=== PATIENT | male | born 1950 | race Caucasian/White ===

== ENCOUNTER → 2019-06-11 | Outpatient (CLI) | payer MEDICARE, OTHER ==
[2019-06-11 12:23] LABS: Basophils % (A) 0 %; Eosinophils # (A) 0.1 k/uL (0-0.7); Eosinophils % (A) 2 %; HCT 40.7 % (39.0-53.0); HGB 13.4 gm/dL (13.0-17.5); Lymphocytes % (A) 13 %; MCH 30.7 pg (25.0-35.0); Mean Platelet Volume 6.6; Monocytes # (A) 0.4 k/uL (0-1.0); Monocytes % (A) 5 %; Neutrophils # (A) 6.1 k/uL (1.3-7.7); Neutrophils % (A) 78 %; Platelet Count 225 k/uL (150-450); RBC 4.38 m/uL (4.30-5.90); RDW 13.3 % (11.5-15.5); WBC 7.9 k/uL (3.8-10.6)
[2019-06-11 12:33] LABS: INR 1.1 (<1.2); Partial Thromboplastin Time 28.7 sec (22.0-30.0); Prothrombin Time 11.2 sec (9.0-12.0)
[2019-06-11 12:42] LABS: African American GFR (CKD) >90 (>60 ml/min/1.73 sqM); Anion Gap 8 mmol/L; Blood Urea Nitrogen 13 mg/dL (9-20); Calcium 8.9 mg/dL (8.4-10.2); Carbon Dioxide 26 mmol/L (22-30); Chloride 107 mmol/L (98-107); Glucose 97 mg/dL (74-99); Potassium 3.4 mmol/L (3.5-5.1); Sodium 141 mmol/L (137-145)
[2019-06-11 13:34] LABS: Appearance,Urine Clear (Clear); Bilirubin,Urine Negative (Negative); Blood,Urine Negative (Negative); Color,Urine Yellow; Glucose,Urine (UA) Negative (Negative); Ketones,Urine Negative (Negative); Leukocyte Esterase,Urine Negative (Negative); Mucus,Urine Rare /hpf; Nitrite,Urine Negative (Negative); Protein,Urine 1+ (Negative); Specific Gravity,Urine 1.019 (1.001-1.035); Squamous Epithelial Cell,Urine <1 /hpf (0-4); Urobilinogen,Urine <2.0 mg/dL (<2.0); WBC,Urine 1 /hpf (0-5)
--- NOTE | 2019-06-11 14:36 | XR ---
EXAMINATION TYPE: XR chest 2V DATE OF EXAM: 06/11/2019 COMPARISON: Prior chest x-ray 11/06/2018 HISTORY: Spinal stenosis, preop back surgery TECHNIQUE: Frontal and lateral views of the chest are obtained on 3 images. FINDINGS: There is no focal air space opacity, pleural effusion, or pneumothorax seen. The cardiac silhouette size is within normal limits. 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 Apical pleural thickening, scarring present especially in the left upper lobe. The osseous structu res are intact. There is thoracic spondylosis. IMPRESSION: No acute cardiopulmonary process. Stable abnormal findings.
== END ==
LOC: LABPAT 11:22
PROVIDERS: ATTEND Orthopaedic Surgery Orthopaedic Surgery of the Spine
DX: Z01.818 Encounter for other preprocedural examination (principal); Z01.812 Encounter for preprocedural laboratory examination; M48.00 Spinal stenosis, site unspecified
CPT/HCPCS: 71046; 80048; 81001; 85025; 85610; 85730; 87070; 93005

== ENCOUNTER → 2019-07-19 | Outpatient (CLI) | payer MEDICARE ==
[2019-07-19 14:04] LABS: Basophils # (A) 0.1 k/uL (0-0.2); Basophils % (A) 1 %; Eosinophils # (A) 0.2 k/uL (0-0.7); Eosinophils % (A) 3 %; HCT 45.3 % (39.0-53.0); HGB 14.8 gm/dL (13.0-17.5); Lymphocytes # (A) 1.3 k/uL (1.0-4.8); Lymphocytes % (A) 20 %; MCH 30.5 pg (25.0-35.0); MCHC 32.7 g/dL (31.0-37.0); MCV 93.4 fL (80.0-100.0); Mean Platelet Volume 7.2; Monocytes # (A) 0.4 k/uL (0-1.0); Monocytes % (A) 6 %; Neutrophils # (A) 4.2 k/uL (1.3-7.7); Neutrophils % (A) 66 %; Platelet Count 224 k/uL (150-450); RBC 4.85 m/uL (4.30-5.90); WBC 6.4 k/uL (3.8-10.6)
[2019-07-19 14:08] LABS: Appearance,Urine Clear (Clear); Bilirubin,Urine Negative (Negative); Blood,Urine Negative (Negative); Color,Urine Yellow; Glucose,Urine (UA) Negative (Negative); Ketones,Urine Negative (Negative); Leukocyte Esterase,Urine Negative (Negative); Nitrite,Urine Negative (Negative); PH, Urine 5.5 (5.0-8.0); Protein,Urine Trace (Negative); Specific Gravity,Urine 1.018 (1.001-1.035); Urobilinogen,Urine <2.0 mg/dL (<2.0)
[2019-07-19 14:11] LABS: Partial Thromboplastin Time 28.5 sec (22.0-30.0); Prothrombin Time 10.8 sec (9.0-12.0)
[2019-07-19 14:30] LABS: African American GFR (CKD) >90 (>60 ml/min/1.73 sqM); Anion Gap 7 mmol/L; Blood Urea Nitrogen 15 mg/dL (9-20); Carbon Dioxide 30 mmol/L (22-30); Chloride 104 mmol/L (98-107); Glucose 93 mg/dL (74-99); Non-African American GFR(CKD) 86 (>60 ml/min/1.73 sqM); Potassium 4.3 mmol/L (3.5-5.1); Sodium 141 mmol/L (137-145)
== END ==
LOC: LABPAT 12:24
PROVIDERS: ATTEND Orthopaedic Surgery Orthopaedic Surgery of the Spine
DX: Z01.812 Encounter for preprocedural laboratory examination (principal); M48.00 Spinal stenosis, site unspecified
CPT/HCPCS: 80048; 81003; 85025; 85610; 85730

== ENCOUNTER → 2019-07-19 | Outpatient (CLI) | payer MEDICARE ==
--- NOTE | 2019-07-19 16:03 | XR ---
EXAMINATION TYPE: XR chest 2V DATE OF EXAM: 07/19/2019 COMPARISON: Prior chest x-ray 06/11/2019 HISTORY: Presurgical testing TECHNIQUE: Frontal and lateral views of the chest are obtained. FINDINGS: There is no focal air space opacity, pleural effusion, or pneumothorax seen. The cardiac silhouette size is within normal limits. The osseous structures are intact, thoracic spondylosis is noted. Biapical pleural thickening is stable. IMPRESSION: No acute cardiopulmonary process.
== END | disposition home or self-care (01) ==
LOC: RADXRMAIN 13:03
PROVIDERS: ATTEND Internal Medicine
DX: I44.0 Atrioventricular block, first degree (principal)
CPT/HCPCS: 71046

== ENCOUNTER 2019-07-26 13:48 | Day surgery (SDC) | payer MEDICARE, OTHER ==
[2019-07-20 09:49] VITALS: BMI 34.9
[~2019-07-26 13:48] MED LIST: BACITRACIN 50,000 UNIT, POLYMYXIN B 500,000 UNIT in SODIUM CHLORIDE 0.9% IRRIGATIO 1,00... IRRIGATION ONE; LIDOCAINE 1% 20 ML VIAL (10MG/ML) FOR IV START INTRADERMA PRN; ONDANSETRON 4 MG/2 ML VIAL IVP ONE; ceFAZolin 3 GM in SODIUM CHLORIDE 0.9% 100 ML IVPB ONE
[2019-07-26] MEDS: LACTATED RINGERS 1,000 ML IV SCH ×2 (14:15→18:41)
[2019-07-26] MEDS ORDERED: PHENYLEPHRINE-0.9% NACL SYG 1 MG/10 ML SYRINGE ONE (16:03)
[2019-07-26] MEDS ORDERED: PROPOFOL 10 MG/ML 20 ML VIAL IV ONE (16:03)
[2019-07-26] MEDS ORDERED: MIDAZOLAM 2 MG/2 ML VIAL ONE (16:03)
[2019-07-26] MEDS ORDERED: LIDOCAINE 1% INJ 10MG/ML (20 ML MDV) ONE (16:03)
[2019-07-26] MEDS ORDERED: fentaNYL (PF) 50 MCG/ML 2 ML AMP ONE (16:03)
[2019-07-26] MEDS ORDERED: HYDROmorphone (PF) 1 MG/ML ONE (16:03)
[2019-07-26] MEDS ORDERED: SUCCINYLCHOLINE CHLORIDE 100 MG/5 ML SYR IV ONE (16:03)
[2019-07-26] MEDS ORDERED: LIDOCAINE 0.5%-EPI 1:200,000 50 ML VIAL SQ ONE ×2 (16:44→17:24)
[2019-07-26] MEDS ORDERED: methylPREDNISolone ACETATE 80 MG/ML 1 ML VIAL INJ ONE ×2 (16:44)
[2019-07-26] MEDS ORDERED: THROMBIN (BOVINE) 5,000 UNIT VIAL TOPICAL ONE (16:45)
[2019-07-26] MEDS ORDERED: GELATIN SPONGE,ABSORB (SMALL) 1 EACH SPONGE TOPICAL ONE (16:45)
[2019-07-26] MEDS ORDERED: LACTATED RINGERS 1,000 ML IV ONE (16:57)
[2019-07-26] MEDS ORDERED: ONDANSETRON 4 MG/2 ML VIAL IVP PRN (17:42)
[2019-07-26] MEDS ORDERED: MAGNESIUM HYDROXIDE 2,400 MG/10 ML CUP PO PRN (17:42)
[2019-07-26] MEDS ORDERED: HYDROmorphone 1 MG/ML 1 ML SYRINGE IVP PRN (17:42)
[2019-07-26] MEDS ORDERED: IBUPROFEN 600 MG TAB PO PRN (17:42)
[2019-07-26] MEDS ORDERED: BENZOCAINE/MENTHOL LOZENG 1 EACH LOZENGE MUCOUS MEM PRN (17:42)
[2019-07-26] MEDS ORDERED: HYDROcodone/APAP 5-325MG 1 EACH TAB PO PRN (17:42)
[2019-07-26] MEDS ORDERED: KETOROLAC 30 MG/ML 1 ML VIAL IVP PRN (17:42)
[2019-07-26] MEDS ORDERED: HYDROmorphone 0.5 MG/0.5 ML SYRINGE IVP PRN (17:42)
[2019-07-26] MEDS ORDERED: ALBUTEROL NEBULIZED 2.5 MG/3 ML INHALATION PRN (17:45)
[2019-07-26] MEDS ORDERED: GABAPENTIN 300 MG CAP PO PRN (17:45)
[2019-07-26] MEDS ORDERED: traMADol 50 MG TAB PO PRN (17:45)
--- NOTE | 2019-07-26 17:50 | P.OP ---
Date of Procedure: 07/26/19 Preoperative Diagnosis: Severe spinal stenosis L4 5, neurogenic claudication, bilateral lower extremity radiculopathy, degenerative disc disease, facet arthrosis Postoperative Diagnosis: Severe spinal stenosis L4 5, neurogenic claudication, bilateral lower extremity radiculopathy, degenerative disc disease, facet arthrosis Anesthesia: GETA Pathology: none sent Condition: stable Disposition: PACU Description of Procedure: BRIEF OPERATIVE NOTE Preoperative Diagnosis: Severe spinal stenosis L4 5, degenerative disc disease L4 5, neurogenic claudication, lower extremity radiculopathy, facet arthrosis Postoperative Diagnosis: Same Procedure: Laminectomy and decompression with wide bilateral foraminotomies L4 5 Placement of the interlaminar stabilization device, Coflex device at L4 5 Surgeon: Dr. Jefferson Engineering Specialist: chemistry laboratory technician who served as a medical office assistant instructor is present throughout the entire the case persistence during positioning, dissection, exposure, visualization, and all crucial elements of the case as well as closure. Anesthesia: General anesthesia per Dr. Dr. Bran Estimated blood loss: approximately 50 mL Complications: None apparent Components implanted: Coflex interlaminar stabilization device L4-5, measuring 10 mm Disposition: To recovery room in good stable condition. OPERATIVE INDICATIONS The patient has been having issues in their lower back and lower extremities. he is having severe claudication symptoms due to his severe spinal stenosis at her lumbar spine particularly severely at L4 5. He is not having any prolonged benefit despite aggressive conservative treatment. He had been through medications physical therapy as well as interventional pain management and was having worsening symptoms despite aggressive conservative care We discussed various treatment options. The patient has been through conservative treatment. she is not having any prolonged benefit despite aggressive conservative treatment We discussed various treatment options including surgery, ranging from laminectomy alone to the possibility of decompression with stabilization as well as the decompression and fusion. We felt that the patient could benefit with decompression and interlaminar stabilization,and the patient wishes to proceed with surgery. The patient also has a history of atrial fibrillation. We discussed the risk, patient's alternatives and benefits of surgery including but not limited to, risk of bleeding risk of infection, risk of need for further surgery, risk of decreased, loss of motion, loss of function, nerve damage, paralysis, heart attack, blindness and . OPERATIVE SUMMARY After discussing all the risks, patient alternatives and benefits at length, the patient elected to proceed with surgical intervention, signed informed consent, and presented for their procedure. The patient was seen and examined in the preoperative holding area and the surgical site was marked. The patient was given antibiotics and brought to the operating room. The patient was sedated and intubated by anesthesia in standard fashion. The patient was positioned on to the operating room table in a prone position on the appropriate frame which was well-padded and well molded. We were careful to pad any bony prominences and pressure points. We were careful to maintain the patient's cervical spine and good neutral alignment and position throughout. The patient was prepped and draped in a normal standard fashion. An appropriate timeout and keystone protocol performed. We were able to proceed with the surgery. Fluoroscopy was utilized to establish the appropriate level. The local wound area was infiltrated with local anesthetic. An incision was made at the midline longitudinally over the appropriate levels at L4 5. Dissection was taken down subcutaneously to the level of the fascia which was split midline. Dissection was taken over the lamina. Intraoperative fluoroscopy was taken which showed a marker at the appropriate level at 45. With the appropriate level positively confirmed, at L4 5 we were able to proceed with laminectomy. The wound was copiously irrigated and suctioned dry as had been done periodically throughout the case. I performed a laminectomy with a combination of curettes and a high-speed bur and Kerrison rongeurs. A small medial facetectomy was performed again further access. A partial foraminotomy was also performed. Portions of the ligamentum flavum were taken down to expose the dura and traversing nerve root. There is severe thickening of the ligamentum flavum and significant facet hypertrophy with osteophytes causing severe central and bilateral foraminal stenosis. This was remedied with the decompression.There is no evidence of dural tear or leak. Good hemostasis maintained. The wound was copiously irrigated and suctioned dry. Good decompression was noted. This was done L4 5. I was unable to measure the appropriate size interlaminar stabilizing device. I was able get good alignment at the intralaminar spaces. I was able to trial with the appropriate size device and get gentle distraction at each level. I chose he is appropriate size interlaminar stabilizer. The Coflex device was positioned and malleted in place and good alignment good position with good fixation at each level. The construct was checked and found to be stable. There is good decompression without any evidence of dural tear or leak. There is no evidence of fracture. We were able to proceed with closure. The fascia was closed for a watertight closure. The subcuticular tissue was closed with absorbable suture. The wound was cleaned and dried and dressed with the appropriate dressing. The drapes were broken down. The patient was gently rolled back onto their hospital bed being careful to maintain their cervical spine and good neutral alignment and position. They were woken up by anesthesia, extubated, and brought to the rec overy room in good stable condition. The patient will be admitted to the hospital for observation and for appropriate postoperative care, medical management and monitoring. We will continue to follow them closely about the postoperative course.
--- NOTE | 2019-07-26 17:59 | FL ---
EXAMINATION TYPE: FL guidance operating room, XR lumbar spine 1V DATE OF EXAM: 07/26/2019 CLINICAL HISTORY: Back pain. Lumbar spinal surgery. Localization. TECHNIQUE: Fluoroscopy. COMPARISON: None. FINDINGS: Fluoroscopic guidance was provided during procedure performed by Dr. Jefferson. A total of 2 seconds of fluoroscopic time was utilized during the procedure and 1 spot images was acquired demonst rating localization at the L4-L5 level (superior endplate of L5). IMPRESSION: As Above.
[2019-07-26] MEDS: HYDROmorphone 0.5 MG/0.5 ML SYRINGE IVP PRN ×2 (18:27→18:39)
[2019-07-26] MEDS: SODIUM CHLORIDE 0.9% 1,000 ML IV SCH (18:53)
[2019-07-26] MEDS: SYMBICORT 160-4.5 MCG INHALER INHALATION SCH (19:52)
[2019-07-26] MEDS ORDERED: MONTELUKAST 10 MG TAB PO SCH (21:00)
[2019-07-26] MEDS ORDERED: EDOXABAN TOSYLATE 60 MG TABLET PO SCH (21:00)
[2019-07-26] MEDS ORDERED: METOPROLOL TARTRATE 25 MG TAB PO SCH (21:00)
--- NOTE | 2019-07-26 23:34 | P.CONS ---
History of Present Illness - Reason for Consult Consult date: 07/26/19 Medical management Requesting physician: Alvina Jefferson - Chief Complaint Lumbar surgery - History of Present Illness Consultation: This is a pleasant 68-year-old patient of Dr. Farias. Chronic stable medical conditions include atrial fibrillation for which she takes anticoagulation, asthma, hypertension. Patient been having long-standing trouble with his lower spine. Been going double hip sometimes of the leg with radiculopathy. Patient did not respond to conservative treatment. And progressed to get worse. Has decided to proceed with surgery. Patient does take savaysa anticoagulant. Which has been held for the surgery. Postsurgery pain is controlled. No nausea vomiting. No chest pain. Did tolerate some diet. Patient's and 2 children up at the bedside. Review of systems: GEN.: Tired EYES: None HEENT: None NECK: None RESPIRATORY: None CARDIOVASCULAR: None GASTROINTESTINAL: None GENITOURINARY: None MUSCULOSKELETAL: Back pain and other joint pains LYMPHATICS: None HEMATOLOGICAL: None PSYCHIATRY: None NEUROLOGICAL: Preop radiculopathy Social history: Does not smoke. Alcohol occasionally. . 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 Family history: Reviewed, noncontributory to presentation Physical examination: VITAL SIGNS: 97.8, 81, 15, 127/80, 93% on 3 L GENERAL: BMI 35.4, laying in bed awake. EYES: Pupils equal. Conjunctiva normal. HEENT: External appearance of nose and ears normal, oral cavity grossly normal. NECK: JVD not raised; masses not palpable. HEART: First and second heart sounds are normal; no edema. LUNGS: Respiratory rate normal; clear to auscultation. ABDOMEN: Soft, nontender, liver spleen not palpable, no masses palpable. PSYCH: Alert and oriented x3; mood and affect normal. NEUROLOGICAL: Cranial nerves grossly intact; no facial asymmetry, power and sensation grossly intact. LYMPHATICS: No lymph nodes palpable in the axilla and neck MUSCULOSKELETAL: Dressing over the operative site INVESTIGATIONS, reviewed in the clinical context: Lab work from 07/19/2019: White count 6.4 hemoglobin 14.8 platelets 224 progression 4.3 creatinine 0.93 Assessment: -Severe spinal stenosis L4-L5, neurogenic claudication, left lower extremity radiculopathy, DJD, facet arthrosis followed by surgery -Obesity BMI 35.4 -Persistent atrial fibrillation chronically on anticoagulation -Intermittent asthma -Essential hypertension Plan: Patient's antiplatelet admission resumed when okay with Dr. jefferson. Other home medications were resumed. Pain control is in place. Also got prevent porch. Care was discussed with the patient question were answered. Is already passed urine since surgery. Thank you Past Medical History Past Medical History: Atrial Fibrillation, Asthma, Hypertension History of Any Multi-Drug Resistant Organisms: None Reported Past Surgical History: Joint Replacement Additional Past Surgical History / Comment(s): stephanie hip replacements, cardioversions, had laporotomy in past for infection and wound left open to heal Past Anesthesia/Blood Transfusion Reactions: Previous Problems w/ Anesthesia Additional Past Anesthesia/Blood Transfusion Reaction / Comm: had trouble with an ileous post op first hip replacement Past Psychological History: No Psychological Hx Reported Smoking Status: Never smoker Past Alcohol Use History: Rare Past Drug Use History: None Reported - Past Family History Mother Family Medical History: No Reported History Medications and Allergies Home Medications Medication Instructions Recorded Confirmed Type Albuterol Sulfate [Proair 2 puff PO Q4-6H PRN 06/14/19 07/26/19 History Respiclick] Budesonide-Formot 160-4.5 Mcg 2 puff INHALATION BID 06/14/19 07/26/19 History [Symbicort 160-4.5 Mcg Inhaler] Edoxaban Tosylate [Savaysa] 60 mg PO HS 06/14/19 07/26/19 History Gabapentin [Neurontin] 300 mg PO Q8H PRN 06/14/19 07/26/19 History Hydrochlorothiazide [Hydrodiuril] 12.5 mg PO DAILY 06/14/19 07/26/19 History Lisinopril [Zestril] 20 mg PO DAILY 06/14/19 07/26/19 History Metoprolol Tartrate [Lopressor] 25 mg PO HS 06/14/19 07/26/19 History Metoprolol Tartrate [Lopressor] 50 mg PO 1200 06/14/19 07/26/19 History Metoprolol Tartrate [Lopressor] 75 mg PO DAILY@0800 06/14/19 07/26/19 History Montelukast [Singulair] 10 mg PO HS 06/14/19 07/26/19 History traMADol HCL [Ultram] 50 - 100 mg PO TID PRN 06/14/19 07/26/19 History HYDROcodone/APAP 5-325MG [[place] 5] 1 each PO Q6HR PRN #28 tab 07/26/19 Rx traMADol HCL [Ultram] 50 mg PO Q4HR PRN 7 Days #42 tab 07/26/19 Rx Allergies Allergy/AdvReac Type Severity Reaction Status Date / Time No Known Allergies Allergy Verified 07/26/19 14:12 Physical Exam Vitals: Vital Signs Temp Pulse Resp BP Pulse Ox 07/26/19 20:45 74 149/89 07/26/19 20:30 68 139/90 07/26/19 20:15 71 139/85 07/26/19 20:00 79 146/85 07/26/19 19:45 78 145/80 07/26/19 19:30 73 142/89 07/26/19 19:15 75 137/85 07/26/19 19:00 97.8 F 81 15 127/80 93 L 07/26/19 18:45 73 16 139/61 96 07/26/19 18:30 74 16 141/79 96 07/26/19 18:15 72 16 146/80 93 L 07/26/19 18:00 68 16 130/63 97 07/26/19 17:50 97.3 F L 75 16 133/87 97 07/26/19 14:10 98.0 F 83 16 153/91 94 L Intake and Output 07/26/19 07/26/19 07/27/19 14:59 22:59 06:59 Intake Total 300 1201.5 Output Total 50 Balance 300 1151.5 Intake: IV 300 1201.5 Output: Estimated Blood Loss 50 Other: # Voids 1 Weight 121.563 kg 121.563 kg
[2019-07-27] MEDS: ceFAZolin 3 GM in SODIUM CHLORIDE 0.9% 100 ML IVPB SCH ×2 (01:12→08:11)
[2019-07-27] MEDS: LACTATED RINGERS 1,000 ML IV SCH ×2 (02:19→02:20)
[2019-07-27] MEDS: HYDROcodone/APAP 5-325MG 1 EACH TAB PO PRN ×3 (02:22→13:34)
[2019-07-27] MEDS: SYMBICORT 160-4.5 MCG INHALER INHALATION SCH (07:21)
[2019-07-27] MEDS ORDERED: METOPROLOL TARTRATE 25 MG TAB PO SCH (08:00)
[2019-07-27] MEDS: SODIUM CHLORIDE 0.9% 1,000 ML IV SCH (08:11)
[2019-07-27 08:36] VITALS: BP 152/90; PULSE 83; RESP 16; TEMP 98.9
[2019-07-27] MEDS ORDERED: LISINOPRIL 20 MG TAB PO SCH (09:00)
[2019-07-27] MEDS ORDERED: HYDROCHLOROTHIAZIDE 12.5 MG CAP PO SCH (09:00)
[2019-07-27] MEDS ORDERED: METOPROLOL TARTRATE 50 MG TAB PO SCH (12:00)
--- NOTE | 2019-07-30 13:32 | P.PN ---
Progress Note - Text Progress Note Date: 07/27/19 - Chief Complaint Lumbar surgery Hospital course: This is a pleasant 68-year-old patient of Dr. Farias. Chronic stable medical conditions include atrial fibrillation for which she takes anticoagulation, asthma, hypertension. Patient been having long-standing trouble with his lower spine. Been going double hip sometimes of the leg with radiculopathy. Patient did not respond to conservative treatment. And progressed to get worse. Has decided to proceed with surgery. Patient does take savaysa anticoagulant. Which has been held for the surgery. Today-pain better. Has been out of bed. Did ambulate. No fever no chills. Taking good urine. No radiculopathy. Review of systems: Was done for constitutional, cardiovascular, GI, pulmonary. relevant finding as above Current medications are reviewed in today's electronic records Physical examination: VITAL SIGNS: 98.9, 83, 16, 152/90, 90% on room air GENERAL: Sitting up, comfortable EYES: Pupils equal. Conjunctiva normal. HEENT: External appearance of nose and ears normal, oral cavity grossly normal. NECK: JVD not raised; masses not palpable. HEART: First and second heart sounds are normal; no edema. LUNGS: Respiratory rate normal; clear to auscultation. ABDOMEN: Soft, nontender, liver spleen not palpable, no masses palpable. PSYCH: Alert and oriented x3; mood and affect normal. MUSCULOSKELETAL: Dressing over the operative site INVESTIGATIONS, reviewed in the clinical context: Lab work from 07/19/2019: White count 6.4 hemoglobin 14.8 platelets 224 progression 4.3 creatinine 0.93 Assessment: -Severe spinal stenosis L4-L5, neurogenic claudication, left lower extremity radiculopathy, DJD, facet arthrosis followed by surgery -Obesity BMI 35.4 -Persistent atrial fibrillation chronically on anticoagulation -Intermittent asthma -Essential hypertension Disposition: -Anticoagulant was resumed. Doing well. In control. When discharged to follow with his PCP. Thank you
== END 2019-07-27 13:48 | disposition home or self-care (01) ==
LOC: OR 13:48 → 4SSUR 17:31 → OR 07-27 13:48
PROVIDERS: ATTEND Orthopaedic Surgery Orthopaedic Surgery of the Spine
DX: M48.062 Spinal stenosis, lumbar region with neurogenic claudication (principal); M51.17 Intervertebral disc disorders with radiculopathy, lumbosacral region; M47.26 Other spondylosis with radiculopathy, lumbar region; G89.29 Other chronic pain; J45.20 Mild intermittent asthma, uncomplicated; I51.9 Heart disease, unspecified; I10 Essential (primary) hypertension; M25.551 Pain in right hip; I48.19 Other persistent atrial fibrillation; E66.01 Morbid (severe) obesity due to excess calories; Z68.35 Body mass index [BMI] 35.0-35.9, adult; Z96.641 Presence of right artificial hip joint; Z96.642 Presence of left artificial hip joint; Z79.899 Other long term (current) drug therapy; Z79.51 Long term (current) use of inhaled steroids; Z79.52 Long term (current) use of systemic steroids; Z79.01 Long term (current) use of anticoagulants; Z98.890 Other specified postprocedural states; Z92.3 Personal history of irradiation; Z86.19 Personal history of other infectious and parasitic diseases; Z91.89 Other specified personal risk factors, not elsewhere classified; Z84.89 Family history of other specified conditions; Z99.89 Dependence on other enabling machines and devices
CPT/HCPCS: 22867; 94640 ×2; 97161; 86900; 86901; 86850; 72020; 36415; C1713; J2250; J1040; J0690 ×2; J2405; J2001; J3010; J1170 ×2; J2370; J0330; J2704

== ENCOUNTER 2020-08-20 15:19 | Inpatient (IN) | payer MEDICARE ==
--- NOTE | 2020-08-20 16:11 | ED ---
SOB HPI - General Chief Complaint: Shortness of Breath Stated Complaint: Pneumonia Time Seen by Provider: 08/20/20 15:34 Source: patient Mode of arrival: wheelchair Limitations: no limitations - History of Present Illness Initial Comments: Patient is a 69-year-old male past medical history of A. fib on Saveysa, hypertension and asthma who presents emergency Department with reported cough and shortness of breath. He reports for the past one week he has had yellow sputum production and shortness of breath which is worse with exertion. Denies any fevers or chills. No nausea or vomiting. Does admit to 10 days worth of diarrhea. Denies black or bloody stools. Does admit to sick contacts. tested positive for covid. [facility] test which was negative. He also had a chest x-ray performed which demonstrated pneumonia. Because of his low oxygen saturations and high heart rate they sent him to the emergency department for further evaluation. He denies history of coronary disease. Has been compliant with his anticoagulation. No home oxygen use. No history of DVT or PE. No other alleviating, precipitating or modifying factors - Related Data Home Medications Medication Instructions Recorded Confirmed Albuterol Sulfate [Proair 2 puff INHALATION RT-QID PRN 06/14/19 08/20/20 Respiclick] Budesonide-Formot 160-4.5 Mcg 2 puff INHALATION RT-BID 06/14/19 08/20/20 [Symbicort 160-4.5 Mcg Inhaler] Edoxaban Tosylate [Savaysa] 60 mg PO HS 06/14/19 08/20/20 Metoprolol Tartrate [Lopressor] 25 mg PO HS 06/14/19 08/20/20 Metoprolol Tartrate [Lopressor] 50 mg PO DAILY@1200 06/14/19 08/20/20 Metoprolol Tartrate [Lopressor] 75 mg PO DAILY@0800 06/14/19 08/20/20 Montelukast [Singulair] 10 mg PO HS 06/14/19 08/20/20 hydroCHLOROthiazide [Hydrodiuril] 12.5 mg PO DAILY 06/14/19 08/20/20 lisinopriL [Zestril] 20 mg PO DAILY 06/14/19 08/20/20 Vitamin D3(Unknown) 1 tab PO DAILY@1200 08/20/20 08/20/20 Zinc(Unknown) 1 tab PO DAILY@1200 08/20/20 08/20/20 Previous Rx's Medication Instructions Recorded Dexamethasone [Decadron] 6 mg PO DAILY #10 tablet 08/23/20 Allergies Allergy/AdvReac Type Severity Reaction Status Date / Time No Known Allergies Allergy Verified 08/20/20 17:08 Review of Systems ROS Statement: Those systems with pertinent positive or pertinent negative responses have been documented in the HPI. ROS Other: All systems not noted in ROS Statement are negative. Past Medical History Past Medical History: Atrial Fibrillation, Asthma, Hypertension, Pneumonia History of Any Multi-Drug Resistant Organisms: None Reported Past Surgical History: Back Surgery, Joint Replacement Additional Past Surgical History / Comment(s): stephanie hip replacements, cardioversions, had laporotomy in past for infection and wound left open to heal Past Anesthesia/Blood Transfusion Reactions: Previous Problems w/ Anesthesia Additional Past Anesthesia/Blood Transfusion Reaction / Comment(s): had trouble with an ileous post op first hip replacement Past Psychological History: No Psychological Hx Reported Smoking Status: Never smoker Past Alcohol Use History: Rare Past Drug Use History: None Reported - Past Family History Mother Family Medical History: No Reported History General Exam Limitations: no limitations General appearance: alert, in no apparent distress Head exam: Present: atraumatic, normocephalic, normal inspection Eye exam: Present: normal appearance, PERRL, EOMI. Absent: scleral icterus, conjunctival injection, periorbital swelling ENT exam: Present: normal exam, mucous membranes moist Neck exam: Present: normal inspection. Absent: tenderness, meningismus, lymphadenopathy Respiratory exam: Present: normal lung sounds bilaterally. Absent: respiratory distress, wheezes, rales, rhonchi, stridor Cardiovascular Exam: Present: regular rate, normal rhythm, normal heart sounds. Absent: systolic murmur, diastolic murmur, rubs, gallop, clicks GI/Abdominal exam: Present: soft, normal bowel sounds. Absent: distended, tenderness, guarding, rebound, rigid Extremities exam: Present: normal inspection, full ROM, normal capillary refill. Absent: tenderness, pedal edema, joint swelling, calf tenderness Back exam: Present: normal inspection Neurological exam: Present: alert, oriented X3, CN II-XII intact Psychiatric exam: Present: normal affect, normal mood Skin exam: Present: warm, dry, intact, normal color. Absent: rash Course Vital Signs 08/20/20 08/20/20 08/20/20 15:29 15:50 17:51 Temperature 98.3 F Pulse Rate 69 94 Respiratory 22 16 16 Rate Blood Pressure 129/82 128/86 O2 Sat by Pulse 89 L 96 Oximetry Medical Decision Making - Medical Decision Making Upon arrival patient is placed into room 10. A thorough history and physical exam was performed. Patient is saturating 89% on room air. He is placed on supplemental oxygen. A 12-lead EKG was performed. Peripheral IV is established and the patient was given a 500 bolus. Laboratory studies were conducted and reviewed. Potassium is 3.1. Creatinine elevated at 1.8. Lactic acid 2.1. Coronal viruses detected. Chest x-ray does demonstrate blunting of the costophrenic angle on the left the patient is started on 75 mL of normal saline per hour. Potassium is replaced. Patient given Decadron. Discussed case with Dr. Epsp who agreed to admit the patient. Patient will be covered with Rocephin. Dr. Epps will order Remdesmivir. Patient's home medications are ordered. He is currently awaiting about the floor - Lab Data Result diagrams: 08/23/20 06:00 08/23/20 06:00 Lab Results 08/20/20 08/20/20 08/20/20 Range/Units 16:01 16:01 16:01 WBC 7.0 (3.8-10.6) k/uL RBC 5.49 (4.30-5.90) m/uL Hgb 16.2 (13.0-17.5) gm/dL Hct 48.3 (39.0-53.0) % MCV 88.1 (80.0-100.0) fL MCH 29.6 (25.0-35.0) pg MCHC 33.5 (31.0-37.0) g/dL RDW 13.4 (11.5-15.5) % Plt Count 248 (150-450) k/uL MPV 10.8 Neutrophils % 79 % Lymphocytes % 8 % Monocytes % 6 % Eosinophils % 0 % Basophils % 2 % Neutrophils # 5.5 (1.3-7.7) k/uL Lymphocytes # 0.6 L (1.0-4.8) k/uL Monocytes # 0.4 (0-1.0) k/uL Eosinophils # 0.0 (0-0.7) k/uL Basophils # 0.1 (0-0.2) k/uL PT 12.6 H (9.0-12.0) sec INR 1.3 H (<1.2) APTT 31.4 H (22.0-30.0) sec D-Dimer 0.40 (<0.60) mg/L FEU Sodium 140 (137-145) mmol/L Potassium 3.1 L (3.5-5.1) mmol/L Chloride 105 (98-107) mmol/L Carbon Dioxide 23 (22-30) mmol/L Anion Gap 12 mmol/L BUN 50 H (9-20) mg/dL Creatinine 1.86 H (0.66-1.25) mg/dL Est GFR (CKD-EPI)AfAm 42 (>60 ml/min/1.73 sqM) Est GFR (CKD-EPI)NonAf 37 (>60 ml/min/1.73 sqM) Glucose 135 H (74-99) mg/dL Lactic Ac Sepsis Rflx Plasma Lactic Acid Armand (0.7-2.0) mmol/L Calcium 8.7 (8.4-10.2) mg/dL Total Bilirubin 1.9 H (0.2-1.3) mg/dL AST 60 H (17-59) U/L ALT 78 H (4-49) U/L Alkaline Phosphatase 73 (38-126) U/L Troponin I (0.000-0.034) ng/mL NT-Pro-B Natriuret Pep pg/mL Total Protein 7.2 (6.3-8.2) g/dL Albumin 3.6 (3.5-5.0) g/dL Influenza Type A (PCR) (Not Detectd) Influenza Type B (PCR) (Not Detectd) RSV (PCR) (Not Detectd) SARS-CoV-2 (PCR) (Not Detectd) 08/20/20 08/20/20 08/20/20 Range/Units 16:01 16:01 16:01 WBC (3.8-10.6) k/uL RBC (4.30-5.90) m/uL Hgb (13.0-17.5) gm/dL Hct (39.0-53.0) % MCV (80.0-100.0) fL MCH (25.0-35.0) pg MCHC (31.0-37.0) g/dL RDW (11.5-15.5) % Plt Count (150-450) k/uL MPV Neutrophils % % Lymphocytes % % Monocytes % % Eosinophils % % Basophils % % Neutrophils # (1.3-7.7) k/uL Lymphocytes # (1.0-4.8) k/uL Monocytes # (0-1.0) k/uL Eosinophils # (0-0.7) k/uL Basophils # (0-0.2) k/uL PT (9.0-12.0) sec INR (<1.2) APTT (22.0-30.0) sec D-Dimer (<0.60) mg/L FEU Sodium (137-145) mmol/L Potassium (3.5-5.1) mmol/L Chloride (98-107) mmol/L Carbon Dioxide (22-30) mmol/L Anion Gap mmol/L BUN (9-20) mg/dL Creatinine (0.66-1.25) mg/dL Est GFR (CKD-EPI)AfAm (>60 ml/min/1.73 sqM) Est GFR (CKD-EPI)NonAf (>60 ml/min/1.73 sqM) Glucose (74-99) mg/dL Lactic Ac Sepsis Rflx Plasma Lactic Acid Armand 2.1 H* (0.7-2.0) mmol/L Calcium (8.4-10.2) mg/dL Total Bilirubin (0.2-1.3) mg/dL AST (17-59) U/L ALT (4-49) U/L Alkaline Phosphatase (38-126) U/L Troponin I 0.024 (0.000-0.034) ng/mL NT-Pro-B Natriuret Pep 3840 pg/mL Total Protein (6.3-8.2) g/dL Albumin (3.5-5.0) g/dL Influenza Type A (PCR) (Not Detectd) Influenza Type B (PCR) (Not Detectd) RSV (PCR) (Not Detectd) SARS-CoV-2 (PCR) (Not Detectd) 08/20/20 08/20/20 Range/Units 16:01 16:26 WBC (3.8-10.6) k/uL RBC (4.30-5.90) m/uL Hgb (13.0-17.5) gm/dL Hct (39.0-53.0) % MCV (80.0-100.0) fL MCH (25.0-35.0) pg MCHC (31.0-37.0) g/dL RDW (11.5-15.5) % Plt Count (150-450) k/uL MPV Neutrophils % % Lymphocytes % % Monocytes % % Eosinophils % % Basophils % % Neutrophils # (1.3-7.7) k/uL Lymphocytes # (1.0-4.8) k/uL Monocytes # (0-1.0) k/uL Eosinophils # (0-0.7) k/uL Basophils # (0-0.2) k/uL PT (9.0-12.0) sec INR (<1.2) APTT (22.0-30.0) sec D-Dimer (<0.60) mg/L FEU Sodium (137-145) mmol/L Potassium (3.5-5.1) mmol/L Chloride (98-107) mmol/L Carbon Dioxide (22-30) mmol/L Anion Gap mmol/L BUN (9-20) mg/dL Creatinine (0.66-1.25) mg/dL Est GFR (CKD-EPI)AfAm (>60 ml/min/1.73 sqM) Est GFR (CKD-EPI)NonAf (>60 ml/min/1.73 sqM) Glucose (74-99) mg/dL Lactic Ac Sepsis Rflx Y Plasma Lactic Acid Armand (0.7-2.0) mmol/L Calcium (8.4-10.2) mg/dL Total Bilirubin (0.2-1.3) mg/dL AST (17-59) U/L ALT (4-49) U/L Alkaline Phosphatase (38-126) U/L Troponin I (0.000-0.034) ng/mL NT-Pro-B Natriuret Pep pg/mL Total Protein (6.3-8.2) g/dL Albumin (3.5-5.0) g/dL Influenza Type A (PCR) Not Detected (Not Detectd) Influenza Type B (PCR) Not Detected (Not Detectd) RSV (PCR) Not Detected (Not Detectd) SARS-CoV-2 (PCR) Detected A (Not Detectd) - EKG Data EKG Comments: EKG demonstrates A. fib with rate of 113. QRS was 6. QTC of 617. No acute ST segment elevations or depressions Disposition Clinical Impression: Hypoxia, COVID-19, Hypokalemia, Diarrhea, JL (acute kidney injury), Atrial fibrillation with RVR Disposition: ADMITTED IP TO THIS HOSP Condition: Good Is patient prescribed a controlled substance at d/c from ED?: No Decision to Admit Reason: Admit from EC Decision Date: 08/20/20 Decision Time: 17:27
[2020-08-20 16:34] LABS: Albumin 3.6 g/dL (3.5-5.0); Calcium 8.7 mg/dL (8.4-10.2); Total Bilirubin 1.9 mg/dL (0.2-1.3); Total Protein 7.2 g/dL (6.3-8.2)
[2020-08-20 16:35] LABS: Potassium 3.1 mmol/L (3.5-5.1)
--- NOTE | 2020-08-20 16:35 | XR ---
EXAMINATION TYPE: XR chest 2V DATE OF EXAM: 08/20/2020 COMPARISON: NONE HISTORY: Difficulty breathing TECHNIQUE: 3 views FINDINGS: Heart is normal. There is some coarse interstitial density in the lower lung rubio. This i s more on the left side. There are no hilar masses. There is very slight mild blunting of the costoph renic angles. Bony thorax is intact. IMPRESSION: There are new pulmonary interstitial infiltrates mainly on the left side compared to old exam. This probably some underlying pulmonary fibrosis. No heart failure seen.
[2020-08-20 16:55] LABS: Basophils # (A) 0.1 k/uL (0-0.2); Basophils % (A) 2 %; Eosinophils % (A) 0 %; HCT 48.3 % (39.0-53.0); HGB 16.2 gm/dL (13.0-17.5); Lymphocytes # (A) 0.6 k/uL (1.0-4.8); Lymphocytes % (A) 8 %; MCH 29.6 pg (25.0-35.0); MCHC 33.5 g/dL (31.0-37.0); MCV 88.1 fL (80.0-100.0); Mean Platelet Volume 10.8; Monocytes # (A) 0.4 k/uL (0-1.0); Monocytes % (A) 6 %; Neutrophils # (A) 5.5 k/uL (1.3-7.7); Neutrophils % (A) 79 %; Platelet Count 248 k/uL (150-450); RBC 5.49 m/uL (4.30-5.90); RDW 13.4 % (11.5-15.5)
[2020-08-20 17:02] LABS: D-Dimer 0.4 mg/L FEU (<0.60); INR 1.3 (<1.2); Partial Thromboplastin Time 31.4 sec (22.0-30.0); Prothrombin Time 12.6 sec (9.0-12.0)
[2020-08-20] MEDS ORDERED: SODIUM CHLORIDE 0.9% 500 ML 500 ML IV ONE (17:03)
[2020-08-20] MEDS ORDERED: POTASSIUM CHLORIDE ER 20 MEQ TAB.ER PO STA (17:12)
[2020-08-20] MEDS ORDERED: POTASSIUM CHLORIDE 20 MEQ in WATER FOR INJECTION 1 100ML.BAG IVPB STA (17:14)
[2020-08-20] MEDS ORDERED: cefTRIAXone IN SWFI 1,000 MG/10 ML SYRINGE IVP STA (17:26)
[2020-08-20] MEDS ORDERED: NALOXONE 0.4 MG/ML 1 ML VIAL IV PRN (17:27)
[2020-08-20] MEDS ORDERED: ACETAMINOPHEN TAB 325 MG TAB PO PRN (17:27)
[2020-08-20] MEDS: SODIUM CHLORIDE 0.9% 1,000 ML IV SCH (17:48)
[2020-08-20] MEDS: SYMBICORT 160-4.5 MCG INHALER INHALATION SCH (20:03)
[2020-08-20] MEDS: ALBUTEROL HFA INHALER INHALATION PRN (20:03)
[2020-08-20] MEDS: DEXAMETHASONE SOD PHOSPHATE 10 MG/ML 1 ML VIAL IV SCH (22:35)
[2020-08-20] MEDS: EDOXABAN TOSYLATE 60 MG TABLET PO SCH (22:35)
[2020-08-20] MEDS: METOPROLOL TARTRATE 25 MG TAB PO SCH (22:37)
[2020-08-20] MEDS: MONTELUKAST 10 MG TAB PO SCH (22:37)
[2020-08-21 06:00] LABS: Basophils % (A) 1 %; Eosinophils % (A) 0 %; HCT 42.3 % (39.0-53.0); HGB 14.2 gm/dL (13.0-17.5); Lymphocytes # (A) 0.5 k/uL (1.0-4.8); Lymphocytes % (A) 12 %; MCH 30.3 pg (25.0-35.0); MCHC 33.6 g/dL (31.0-37.0); Mean Platelet Volume 8.6; Monocytes # (A) 0.2 k/uL (0-1.0); Monocytes % (A) 5 %; Neutrophils % (A) 78 %; Platelet Count 270 k/uL (150-450); WBC 3.8 k/uL (3.8-10.6)
[2020-08-21] MEDS: METOPROLOL TARTRATE 25 MG TAB PO SCH ×2 (07:36→21:38)
[2020-08-21] MEDS: DEXAMETHASONE SOD PHOSPHATE 10 MG/ML 1 ML VIAL IV SCH ×2 (07:36→21:38)
[2020-08-21] MEDS: SYMBICORT 160-4.5 MCG INHALER INHALATION SCH ×2 (07:42→19:15)
[2020-08-21] MEDS: ALBUTEROL HFA INHALER INHALATION PRN ×2 (07:42→19:16)
[2020-08-21 09:50] LABS: African American GFR (CKD) 59.8 (60.0-200.0); BUN/Creat Ratio 30.71 Ratio (12.00-20.00); Non-African American GFR(CKD) 51.6 (60.0-200.0); Potassium 3.4 mmol/L (3.5-5.5)
[2020-08-21] MEDS: ZINC SULFATE 220 MG CAP PO SCH (12:33)
[2020-08-21] MEDS: CHOLECALCIFEROL 1,000 UNIT TAB PO SCH (12:33)
[2020-08-21] MEDS: METOPROLOL TARTRATE 50 MG TAB PO SCH (12:33)
[2020-08-21] MEDS: SODIUM CHLORIDE 0.9% 1,000 ML IV SCH ×2 (12:34→22:13)
[2020-08-21] MEDS ORDERED: POTASSIUM CHLORIDE ER 20 MEQ TAB.ER PO STA (17:24)
--- NOTE | 2020-08-21 21:31 | P.HPIM ---
History of Present Illness H&P Date: 08/21/20 Chief Complaint: Shortness of breath along with cough and yellowish sputum p roduction This is a 69-year-old male who came into the hospital in the emergency department due to ongoing cough shortness of breath and yellow sputum production symptoms started about a week ago, denies any chest pain, patient does have exertional dyspnea, outpatient: Weight S was negative, patient has a chest x-ray in outpatient revealed presence of pneumonia, patient also has a chronic history of atrial fibrillation and has been on cefazolin hypertension hypertensive cardiovascular disease, patient oxygen is marginal 89%, also significant labs include sore per day she was 3.1 BUN/creatinine 50/1.86, testing came back positive for covert 19 pneumonia, his chest x-ray positive for interstitial pneumonia left more than the right Review of Systems All systems: negative Past Medical History Past Medical History: Atrial Fibrillation, Asthma, Hypertension, Pneumonia History of Any Multi-Drug Resistant Organisms: None Reported Past Surgical History: Back Surgery, Joint Replacement Additional Past Surgical History / Comment(s): stephanie hip replacements, cardioversions, had laporotomy in past for infection and wound left open to heal Past Anesthesia/Blood Transfusion Reactions: Previous Problems w/ Anesthesia Additional Past Anesthesia/Blood Transfusion Reaction / Comment(s): had trouble with an ileous post op first hip replacement Past Psychological History: No Psychological Hx Reported Smoking Status: Never smoker Past Alcohol Use History: Rare Past Drug Use History: None Reported - Past Family History Mother Family Medical History: No Reported History Additional Family Medical History / Comment(s): at 96 Medications and Allergies Home Medications Medication Instructions Recorded Confirmed Type Albuterol Sulfate [Proair 2 puff INHALATION RT-QID PRN 06/14/19 08/20/20 History Respiclick] Budesonide-Formot 160-4.5 Mcg 2 puff INHALATION RT-BID 06/14/19 08/20/20 History [Symbicort 160-4.5 Mcg Inhaler] Edoxaban Tosylate [Savaysa] 60 mg PO HS 06/14/19 08/20/20 History Metoprolol Tartrate [Lopressor] 25 mg PO HS 06/14/19 08/20/20 History Metoprolol Tartrate [Lopressor] 50 mg PO DAILY@1200 06/14/19 08/20/20 History Metoprolol Tartrate [Lopressor] 75 mg PO DAILY@0800 06/14/19 08/20/20 History Montelukast [Singulair] 10 mg PO HS 06/14/19 08/20/20 History hydroCHLOROthiazide [Hydrodiuril] 12.5 mg PO DAILY 06/14/19 08/20/20 History lisinopriL [Zestril] 20 mg PO DAILY 06/14/19 08/20/20 History Vitamin D3(Unknown) 1 tab PO DAILY@1200 08/20/20 08/20/20 History Zinc(Unknown) 1 tab PO DAILY@1200 08/20/20 08/20/20 History Allergies Allergy/AdvReac Type Severity Reaction Status Date / Time No Known Allergies Allergy Verified 08/20/20 17:08 Physical Exam Vitals: Vital Signs Temp Pulse Pulse Resp BP BP Pulse Ox 08/21/20 21:19 97.5 F L 87 18 154/82 95 08/21/20 17:00 97.7 F 98 18 161/83 94 L 08/21/20 11:00 97.4 F L 94 16 153/84 94 L 08/21/20 05:00 97.5 F L 82 20 119/76 94 L 08/20/20 22:48 97.8 F 102 H 20 104/68 91 L Intake and Output 08/21/20 08/21/20 08/21/20 06:59 14:59 22:59 Intake Total 500 1000 Balance 500 1000 Intake: Oral 500 1000 Other: Voiding Method Toilet # Voids 3 2 - Constitutional General appearance: average body habitus - EENT Eyes: PERRLA Ears: bilateral: normal - Neck Carotids: bilateral: upstroke normal Thyroid: bilateral: normal size - Respiratory Respiratory: bilateral: diminished - Cardiovascular Rhythm: regular Heart sounds: normal: S1, S2 - Gastrointestinal General gastrointestinal: normal bowel sounds - Integumentary Integumentary: normal turgor - Neurologic Neurologic: CNII-XII intact - Musculoskeletal Musculoskeletal: gait normal, generalized weakness, strength equal bilaterally - Psychiatric Psychiatric: A&O x's 3, appropriate affect, intact judgment & insight Results CBC & Chem 7: 08/21/20 05:21 08/21/20 05:21 Labs: Abnormal Lab Results - Last 24 Hours (Table) 08/21/20 08/21/20 Range/Units 05:21 05:21 Lymphocytes # 0.5 L (1.0-4.8) k/uL Potassium 3.4 L (3.5-5.5) mmol/L BUN 43.0 H (9.0-27.0) mg/dL Est GFR (CKD-EPI)AfAm 59.8 L (60.0-200.0) Est GFR (CKD-EPI)NonAf 51.6 L (60.0-200.0) BUN/Creatinine Ratio 30.71 H (12.00-20.00) Ratio Glucose 155 H (70-110) mg/dL Calcium 8.0 L (8.7-10.3) mg/dL Microbiology - Last 24 Hours (Table) 08/20/20 17:45 Blood Culture - Preliminary Blood No Growth after 24 hours Thrombosis Risk Factor Assmnt - Choose All That Apply Any of the Below Risk Factors Present?: Yes Each Factor Represents 1 point: Obesity (BMI >25), Serious lung disease incl. pneumonia (< 1month) Other Risk Factors: Yes Each Risk Factor Represents 3 Points: History of DVT/PE Thrombosis Risk Factor Assessment Total Risk Factor Score: 5 Thrombosis Risk Factor Assessment Level: High Risk Assessment and Plan Assessment: Acute interstitial pneumonia due to covi 19 Acute hypoxic respiratory failure Chronic atrial fibrillation Hypertension hypertensive cardiovascular disease Acute on Chronic renal failure Intravascular volume depletion and dehydration Plan: Continue oral direct intake loculated Decadron Pimental oxygen Replace potassium Deep breathing exercise incentive spirometry Prone positioning IV in remdesivir Time with Patient: Greater than 30
[2020-08-21] MEDS: EDOXABAN TOSYLATE 60 MG TABLET PO SCH ×2 (21:37→21:38)
[2020-08-21] MEDS: MONTELUKAST 10 MG TAB PO SCH (21:37)
[2020-08-21] MEDS ORDERED: REMDESIVIR 200 MG in SODIUM CHLORIDE 0.9% 250 ML IVPB ONE (22:00)
[2020-08-22] MEDS: ALBUTEROL HFA INHALER INHALATION PRN ×2 (07:30→19:17)
[2020-08-22] MEDS: SYMBICORT 160-4.5 MCG INHALER INHALATION SCH ×2 (07:30→19:17)
[2020-08-22] MEDS: METOPROLOL TARTRATE 25 MG TAB PO SCH ×2 (07:33→20:28)
[2020-08-22] MEDS: DEXAMETHASONE SOD PHOSPHATE 10 MG/ML 1 ML VIAL IV SCH (07:34)
--- NOTE | 2020-08-22 09:59 | P.PN ---
Subjective Progress Note Date: 08/22/20 Principal diagnosis: Acute interstitial pneumonia due to covi 19 Acute hypoxic respiratory failure Chronic atrial fibrillation Hypertension hypertensive cardiovascular disease Acute renal failure/acute kidney injury Intravascular volume depletion and dehydration 08/22/2020, patient seen eval examined during the rounds labs reviewed medications reviewed care plan discussed, patient remains on IV therapy and usual treatment for covert 19 pneumonia and acute respiratory failure, is being treated for community-acquired pneumonia as well as with broad-spectrum antibiotics he feels better today oxygen saturation improved to 95%, remains afebrile blood pressure is slightly high, Zestril was held due to elevated creatinine, patient is being placed on hydralazine in the meantime, remains on direct anticoagulant, patient sees Dr. Harris for his asthma problem we'll consult him as well This is a 69-year-old male who came into the hospital in the emergency department due to ongoing cough shortness of breath and yellow sputum production symptoms started about a week ago, denies any chest pain, patient does have exertional dyspnea, outpatient: Weight S was negative, patient has a chest x-ray in outpatient revealed presence of pneumonia, patient also has a chronic history of atrial fibrillation and has been on cefazolin hypertension hypertensive cardiovascular disease, patient oxygen is marginal 89%, also significant labs include sore per day she was 3.1 BUN/creatinine 50/1.86, testing came back positive for covert 19 pneumonia, his chest x-ray positive for interstitial pneumonia left more than the right Objective - Vital Signs Vital signs: Vital Signs Temp 97.6 F 08/22/20 05:00 Pulse 86 08/22/20 05:00 Resp 18 08/22/20 05:00 BP 153/84 08/22/20 05:00 Pulse Ox 95 08/22/20 05:00 Intake & Output 08/21/20 08/22/20 08/22/20 18:59 06:59 18:59 Intake Total 1000 Output Total 800 Balance 1000 -800 Intake: Oral 1000 Output: Urine 800 Other: Voiding Method Toilet Toilet Toilet # Voids 2 - Exam - Constitutional General appearance: average body habitus - EENT Eyes: PERRLA Ears: bilateral: normal - Neck Carotids: bilateral: upstroke normal Thyroid: bilateral: normal size - Respiratory Respiratory: bilateral: diminished - Cardiovascular Rhythm: regular Heart sounds: normal: S1, S2 - Gastrointestinal General gastrointestinal: normal bowel sounds - Integumentary Integumentary: normal turgor - Neurologic Neurologic: CNII-XII intact - Musculoskeletal Musculoskeletal: gait normal, generalized weakness, strength equal bilaterally - Psychiatric Psychiatric: A&O x's 3, appropriate affect, intact judgment & insight - Labs CBC & Chem 7: 08/21/20 05:21 08/21/20 05:21 Labs: Microbiology - Last 24 Hours (Table) 08/20/20 17:45 Blood Culture - Preliminary Blood No Growth after 24 hours Assessment and Plan Assessment: Acute interstitial pneumonia due to covid 19 pneumonia Acute hypoxic respiratory failure Community-acquired pneumonia Chronic atrial fibrillation Hypertension hypertensive cardiovascular disease Acute on Chronic renal failure Intravascular volume depletion and dehydration Plan: Continue oral direct intake loculated Decadron Pimental oxygen Replace potassium Deep breathing exercise incentive spirometry Prone positioning IV in remdesivir Time with Patient: Greater than 30
[2020-08-22] MEDS: METOPROLOL TARTRATE 50 MG TAB PO SCH (12:35)
[2020-08-22] MEDS: ZINC SULFATE 220 MG CAP PO SCH (12:35)
[2020-08-22] MEDS: CHOLECALCIFEROL 1,000 UNIT TAB PO SCH (12:35)
[2020-08-22] MEDS: SODIUM CHLORIDE 0.9% 1,000 ML IV SCH (12:57)
--- NOTE | 2020-08-22 13:13 | P.CNPUL ---
History of Present Illness Consult date: 08/22/20 Reason for consult: dyspnea History of present illness: 59-year-old male patient, obese, known history of bronchial asthma, followed up with Dr. Ferguson at our office and the patient is a maintained on Symbicort and prior rescue inhaler numbness in his basis. The patient's was infected with Covid 19. The patient subsequently started getting sick and he experienced some increased sore throat and diarrhea. In fact, his at the similar symptoms of diarrhea and abdominal pain. She was not hospitalized. The patient came into the hospital for further investigation. He also reported some increased shortness of breath. Apparently at an urgent care, he was noted to have a lower pulse ox. His pulse ox was marginal at the time of arrival he was 89%. Based on that, the patient was placed on 2 L of oxygen by nasal cannula. The initial lactic acid level was 2.1. The langley virus/Covid 19 screen came back positive. The chest x-ray showed no significant abnormalities. The patient was started on IV fluid with normal saline at rate of 75 mL's an hour. The patient was started on Decadron. The patient was placed under the care of Dr. Epps with turn started the patient on Remdesivir. During the same admission, the patient's creatinine came up to 1.8 and with IV fluids to her creatinine is down to 1.4. Note that last year, the patient had a normal renal function and his baseline renal function is assumed to be within normal limits. The patient is known to have asthma, hypertension and osteoarthritis and he has undergone bilateral hip replacement. He is obese. He has also issues with atrial fibrillation maintained on long-term and to coagulation with Savaysa Review of Systems Constitutional: Reports fatigue, Reports lethargy Eyes: denies as per HPI, denies blurred vision, denies bulging eye, denies decreased vision, denies diplopia, denies discharge, denies dry eye, denies irritation, denies itching, denies pain, denies photophobia, denies loss of peripheral vision, denies loss of vision, denies tunnel vision/blind spots Ears: right: decreased hearing Ears, nose, mouth and throat: Reports as per HPI, Reports sore throat Breasts: absent: as per HPI, gynecomastia Cardiovascular: Reports decreased exercise tolerance, Reports dyspnea on exe rtion Respiratory: Reports dyspnea Gastrointestinal: Reports as per HPI, Reports diarrhea, Reports nausea Genitourinary: Reports as per HPI Musculoskeletal: Reports as per HPI Musculoskeletal: absent: ankle pain, ankle stiffness, ankle swelling Integumentary: Reports as per HPI Neurological: Reports as per HPI Psychiatric: Reports as per HPI Endocrine: Reports as per HPI Allergic/Immunologic: Reports as per HPI Past Medical History Past Medical History: Atrial Fibrillation, Asthma, Hypertension History of Any Multi-Drug Resistant Organisms: None Reported Past Surgical History: Back Surgery, Joint Replacement Additional Past Surgical History / Comment(s): stephanie hip replacements, cardioversions, had laporotomy in past for infection and wound left open to heal Past Anesthesia/Blood Transfusion Reactions: Previous Problems w/ Anesthesia Additional Past Anesthesia/Blood Transfusion Reaction / Comment(s): had trouble with an ileous post op first hip replacement Past Psychological History: No Psychological Hx Reported Smoking Status: Never smoker Past Alcohol Use History: Rare Past Drug Use History: None Reported - Past Family History Mother Family Medical History: No Reported History Additional Family Medical History / Comment(s): at 96 Medications and Allergies Home Medications Medication Instructions Recorded Confirmed Type Albuterol Sulfate [Proair 2 puff INHALATION RT-QID PRN 06/14/19 08/20/20 History Respiclick] Budesonide-Formot 160-4.5 Mcg 2 puff INHALATION RT-BID 06/14/19 08/20/20 History [Symbicort 160-4.5 Mcg Inhaler] Edoxaban Tosylate [Savaysa] 60 mg PO HS 06/14/19 08/20/20 History Metoprolol Tartrate [Lopressor] 25 mg PO HS 06/14/19 08/20/20 History Metoprolol Tartrate [Lopressor] 50 mg PO DAILY@1200 06/14/19 08/20/20 History Metoprolol Tartrate [Lopressor] 75 mg PO DAILY@0800 06/14/19 08/20/20 History Montelukast [Singulair] 10 mg PO HS 06/14/19 08/20/20 History hydroCHLOROthiazide [Hydrodiuril] 12.5 mg PO DAILY 06/14/19 08/20/20 History lisinopriL [Zestril] 20 mg PO DAILY 10/21/19 12/27/20 History Vitamin D3(Unknown) 1 tab PO DAILY@1200 08/20/20 08/20/20 History Zinc(Unknown) 1 tab PO DAILY@1200 08/20/20 08/20/20 History Allergies Allergy/AdvReac Type Severity Reaction Status Date / Time No Known Allergies Allergy Verified 08/20/20 17:08 Physical Exam Vitals: Vital Signs Temp Pulse Resp BP Pulse Ox 08/22/20 05:00 97.6 F 86 18 153/84 95 08/21/20 21:19 97.5 F L 87 18 154/82 95 08/21/20 20:00 18 08/21/20 17:00 97.7 F 98 18 161/83 94 L Intake and Output 08/21/20 08/22/20 08/22/20 22:59 06:59 14:59 Intake Total 1000 Output Total 800 Balance 1000 -800 Intake: Oral 1000 Output: Urine 800 Other: Voiding Method Toilet Toilet # Voids 2 obese, calm and comfortable not in distress, the patient is currently on room air oxygen Head exam was generally normal. There was no scleral icterus or corneal arcus. Mucous membranes were moist. Neck was supple and without jugular venous distension, thyromegaly, or carotid bruits. Carotids were easily palpable bilaterally. There was no adenopathy. The patient has a Mallampati class IV Lungs sounds are diminished bilaterally and the patient some limited bibasilar crackles Cardiac exam revealed the PMI to be normally situated and sized. The rhythm was irregular consistent with atrial fibrillation and no extrasystoles were noted during several minutes of auscultation. The first and second heart sounds were normal and physiologic splitting of the second heart sound was noted. There were no murmurs, rubs, clicks, or gallops. Abdominal exam revealed normal bowel sounds. The abdomen was soft, non-tender, and without masses, organomegaly, or appreciable enlargement of the abdominal aorta. Examination of the extremities revealed easily palpable radial, femoral and pedal pulses. There was no cyanosis, clubbing or edema. Examination of the skin revealed no evidence of significant rashes, suspicious appearing nevi or other concerning lesions. Neurologically, the patient is awake and alert and the patient does not have any focal neurological deficit. Cranial nerves are essentially intact. Results - Laboratory Findings CBC and BMP: 08/21/20 05:21 08/22/20 06:10 PT/INR, D-dimer PT 12.6 sec (9.0-12.0) H 08/20/20 16:01 INR 1.3 (<1.2) H 08/20/20 16:01 D-Dimer 0.40 mg/L FEU (<0.60) 08/20/20 16:01 Abnormal lab findings: Abnormal Labs 08/20/20 08/20/20 08/20/20 16:01 16:01 16:01 Lymphocytes # 0.6 L PT 12.6 H INR 1.3 H APTT 31.4 H Potassium 3.1 L BUN 50 H Creatinine 1.86 H Est GFR (CKD-EPI)AfAm Est GFR (CKD-EPI)NonAf BUN/Creatinine Ratio Glucose 135 H Plasma Lactic Acid Armand Calcium Total Bilirubin 1.9 H AST 60 H ALT 78 H SARS-CoV-2 (PCR) 08/20/20 08/20/20 08/21/20 16:01 16:01 05:21 Lymphocytes # 0.5 L PT INR APTT Potassium BUN Creatinine Est GFR (CKD-EPI)AfAm Est GFR (CKD-EPI)NonAf BUN/Creatinine Ratio Glucose Plasma Lactic Acid Armand 2.1 H* Calcium Total Bilirubin AST ALT SARS-CoV-2 (PCR) Detected A 08/21/20 05:21 Lymphocytes # PT INR APTT Potassium 3.4 L BUN 43.0 H Creatinine Est GFR (CKD-EPI)AfAm 59.8 L Est GFR (CKD-EPI)NonAf 51.6 L BUN/Creatinine Ratio 30.71 H Glucose 155 H Plasma Lactic Acid Armand Calcium 8.0 L Total Bilirubin AST ALT SARS-CoV-2 (PCR) - Diagnostic Findings Chest x-ray: image reviewed Assessment and Plan Plan: 1 acute Covid 19 related infection/pneumonia 2 acute hypoxic respiratory failure, improved. The patient's pulse ox was 89% time of admission and currently is on room air maintaining a saturation above 90% 3 acute kidney injury, likely secondary to intravascular volume depletion, improved in the creatinine is down to 1.4 4 chronic atrial fibrillation 5 gastrointestinal symptoms of nausea and diarrhea secondary to Covid 19 related infection, recovered 6 obesity with a BMI of 32.3 7 osteoarthritis 8 hypertension 9 chronic bronchial asthma maintained on Symbicort on outpatient basis Plan Clinically stable patient is improved and the patient is currently on room air oxygen May discontinue Remdesivir the next 24 hours Continue fluid resuscitation with normal saline at the rate of 75 mL an hour and the renal function continues to improve in the creatinine is down to 1.4 Continue Decadron 6 mg once a day Continue Symbicort and similar regarding his asthma and utilized at the rescue inhaler on an as-needed basis Continue the vitamin C and vitamin D and zinc supplements Possible discharge home in a.m.
[2020-08-22] MEDS: hydrALAZINE HCL 25 MG TAB PO SCH ×2 (16:11→22:14)
[2020-08-22] MEDS: MONTELUKAST 10 MG TAB PO SCH (20:27)
[2020-08-22 21:37] VITALS: RESP 18
[2020-08-22] MEDS ORDERED: REMDESIVIR 100 MG in SODIUM CHLORIDE 0.9% 250 ML IVPB SCH (22:00)
[2020-08-23] MEDS: SODIUM CHLORIDE 0.9% 1,000 ML IV SCH ×2 (05:29→16:22)
[2020-08-23 06:25] LABS: Basophils % (A) 0 %; Eosinophils % (A) 0 %; HCT 40.1 % (39.0-53.0); HGB 12.7 gm/dL (13.0-17.5); Lymphocytes # (A) 0.6 k/uL (1.0-4.8); Lymphocytes % (A) 9 %; MCH 29.5 pg (25.0-35.0); MCHC 31.7 g/dL (31.0-37.0); MCV 92.9 fL (80.0-100.0); Mean Platelet Volume 8.2; Monocytes # (A) 0.4 k/uL (0-1.0); Monocytes % (A) 5 %; Neutrophils # (A) 5.4 k/uL (1.3-7.7); Neutrophils % (A) 83 %; Platelet Count 279 k/uL (150-450); RBC 4.32 m/uL (4.30-5.90); RDW 13.4 % (11.5-15.5); WBC 6.5 k/uL (3.8-10.6)
[2020-08-23] MEDS: SYMBICORT 160-4.5 MCG INHALER INHALATION SCH (07:54)
[2020-08-23] MEDS: ALBUTEROL HFA INHALER INHALATION PRN ×2 (07:54→15:29)
[2020-08-23] MEDS ORDERED: DEXAMETHASONE SOD PHOSPHATE 10 MG/ML 1 ML VIAL IV SCH (09:00)
[2020-08-23 10:09] LABS: African American GFR (CKD) 89.9 (60.0-200.0); Albumin 2.8 g/dL (3.80-4.90); Albumin/Globulin Ratio 1.33 (1.60-3.17); Anion Gap 11.5 mmol/L (4.00-12.00); Calcium 7.7 mg/dL (8.7-10.3); Carbon Dioxide 20.5 mmol/L (21.6-31.8); Globulin 2.1 g/dL (1.6-3.3); Non-African American GFR(CKD) 77.5 (60.0-200.0); Potassium 3.6 mmol/L (3.5-5.5); Total Bilirubin 0.5 mg/dL (0.2-1.2); Total Protein 4.9 g/dL (6.2-8.2)
[2020-08-23] MEDS: METOPROLOL TARTRATE 25 MG TAB PO SCH (10:13)
[2020-08-23] MEDS: hydrALAZINE HCL 25 MG TAB PO SCH ×2 (10:14→17:04)
[2020-08-23] MEDS: METOPROLOL TARTRATE 50 MG TAB PO SCH (10:14)
[2020-08-23] MEDS: CHOLECALCIFEROL 1,000 UNIT TAB PO SCH (10:14)
[2020-08-23] MEDS: ZINC SULFATE 220 MG CAP PO SCH (10:15)
--- NOTE | 2020-08-23 14:53 | P.PN ---
Subjective Progress Note Date: 08/23/20 Principal diagnosis: CoVID 19 pneumonitis 59-year-old male patient, obese, known history of bronchial asthma, followed up with Dr. Ferguson at our office and the patient is a maintained on Symbicort and prior rescue inhaler numbness in his basis. The patient's was infected w ith Covid 19. The patient subsequently started getting sick and he experienced some increased sore throat and diarrhea. In fact, his at the similar symptoms of diarrhea and abdominal pain. She was not hospitalized. The patient came into the hospital for further investigation. He also reported some increased shortness of breath. Apparently at an urgent care, he was noted to have a lower pulse ox. His pulse ox was marginal at the time of arrival he was 89%. Based on that, the patient was placed on 2 L of oxygen by nasal cannula. The initial lactic acid level was 2.1. The langley virus/Covid 19 screen came back positive. The chest x-ray showed no significant abnormalities. The p atient was started on IV fluid with normal saline at rate of 75 mL's an hour. The patient was started on Decadron. The patient was placed under the care of Dr. Epps with turn started the patient on Remdesivir. During the same admission, the patient's creatinine came up to 1.8 and with IV fluids to her creatinine is down to 1.4. Note that last year, the patient had a normal renal function and his baseline renal function is assumed to be within normal limits. The patient is known to have asthma, hypertension and osteoarthritis and he has undergone bilateral hip replacement. He is obese. He has also issues with atrial fibrillation maintained on long-term and to coagulation with Savaysa The patient is seen today 08/23/2020 in follow-up on the regular medical floor. He is currently awake and alert in no acute distress. Maintaining O2 saturation the mid 90s on room air. He is afebrile. Hemodynamically stable. He was initiated on Remdesivir. White count 6.5. Hemoglobin 12.7. Lymphocytes 0.6% 143. Potassium 3.6. Creatinine 1.0. Glucose 127. He remains on Symbicort, albuterol, ceftriaxone. Anticoagulated with Savaysa. Continued on dexamethasone and vitamin supplements. Objective - Vital Signs Vital signs: Vital Signs Temp 97.4 F L 08/23/20 10:30 Pulse 85 08/23/20 10:30 Resp 18 08/23/20 10:30 BP 153/87 08/23/20 10:30 Pulse Ox 95 08/23/20 10:30 Intake & Output 08/22/20 08/23/20 08/23/20 18:59 06:59 18:59 Intake Total 600 1440 Balance 600 1440 Intake: Intake, IV Titration 600 900 Amount Sodium Chloride 0.9% 1, 600 900 000 ml @ 75 mls/hr IV . [id number] [facility] Rx#:[id number] Oral 540 Other: Voiding Method Toilet Toilet Toilet # Voids 1 - Exam GENERAL EXAM: Alert, pleasant 69 year old gentleman, on room air, comfortable in no apparent distress. HEAD: Normocephalic. EYES: Normal reaction of pupils, equal size. NOSE: Clear with pink turbinates. THROAT: No erythema or exudates. NECK: No masses, no JVD. CHEST: No chest wall deformity. LUNGS: Equal air entry with no crackles, wheeze, rhonchi or dullness. CVS: S1 and S2 normal with no audible murmur, regular rhythm. ABDOMEN: No hepatosplenomegaly, normal bowel sounds, no guarding or rigidity. SPINE: No scoliosis or deformity SKIN: No rashes CENTRAL NERVOUS SYSTEM: No focal deficits, tone is normal in all 4 extremities. EXTREMITIES: There is no peripheral edema. No clubbing, no cyanosis. Peripheral pulses are intact. - Labs CBC & Chem 7: 08/23/20 06:00 08/23/20 06:00 Labs: Abnormal Lab Results - Last 24 Hours (Table) 08/23/20 08/23/20 Range/Units 06:00 06:00 Hgb 12.7 L (13.0-17.5) gm/dL Lymphocytes # 0.6 L (1.0-4.8) k/uL Chloride 111 H (96-109) mmol/L Carbon Dioxide 20.5 L (21.6-31.8) mmol/L BUN/Creatinine Ratio 23.00 H (12.00-20.00) Ratio Glucose 127 H (70-110) mg/dL Calcium 7.7 L (8.7-10.3) mg/dL ALT 52 H (10-49) U/L Total Protein 4.9 L (6.2-8.2) g/dL Albumin 2.80 L (3.80-4.90) g/dL Albumin/Globulin Ratio 1.33 L (1.60-3.17) g/dL Microbiology - Last 24 Hours (Table) 08/20/20 17:45 Blood Culture - Preliminary Blood No Growth after 48 hours Assessment and Plan Assessment: 1 acute Covid 19 related infection/pneumonia 2 acute hypoxic respiratory failure, improved. The patient's pulse ox was 89% time of admission and currently is on room air maintaining a saturation above 90% 3 acute kidney injury, likely secondary to intravascular volume depletion, improved in the creatinine is down to 1.0 4 chronic atrial fibrillation 5 gastrointestinal symptoms of nausea and diarrhea secondary to Covid 19 related infection, recovered 6 obesity with a BMI of 32.3 7 osteoarthritis 8 hypertension 9 chronic bronchial asthma maintained on Symbicort on outpatient basis Plan: The patient was seen and evaluated by Dr. Steven Miner from the pulmonary standpoint Discontinue Remdesivir Discharge home to complete 10 days of dexamethasone Continue bronchodilators Continue vitamin supplements Savaysa as anticoagulant Follow up with Dr. Harris in the office in 1-2 weeks' time I, the cosigning physician, performed a history & physical examination of the patient. Lungs sounds are clear. Maintaining good O2 saturations in the 90s on room air. I discussed the assessment and plan of care with my nurse practitioner, Kendy Lr. I attest to the above note as dictated by her.
[2020-08-23 16:18] VITALS: BP 149/77; PULSE 82; TEMP 98.3
--- NOTE | 2020-08-23 16:24 | P.DS ---
Providers Date of admission: 08/20/20 17:27 Expected date of discharge: 08/23/20 Attending physician: Douglas Epps Consults: 08/22/20 09:32 Consult Physician Routine Consulting Provider: Darien Stafford Consult Reason/Comments: COVID/PNA Do you want consulting provider notified?: Yes Primary care physician: [facility] Course: 08/23/2020, patient seen eval examined during the rounds labs reviewed medications reviewed, patient is being planned for discharge as per recommendation of the pulmonary service, he will go home on usual therapy for covert 19 pneumonia dehydration patient renal function have normalized, C. difficile is negative patient can go back on STAS inhibitor's 08/22/2020, patient seen eval examined during the rounds labs reviewed medications reviewed care plan discussed, patient remains on IV therapy and usual treatment for covert 19 pneumonia and acute respiratory failure, is being treated for community-acquired pneumonia as well as with broad-spectrum antibiotics he feels better today oxygen saturation improved to 95%, remains afebrile blood pressure is slightly high, Zestril was held due to elevated creatinine, patient is being placed on hydralazine in the meantime, remains on direct anticoagulant, patient sees Dr. Harris for his asthma problem we'll consult him as well This is a 69-year-old male who came into the hospital in the emergency department due to ongoing cough shortness of breath and yellow sputum production symptoms started about a week ago, denies any chest pain, patient does have exertional dyspnea, outpatient: Weight S was negative, patient has a chest x-ray in outpatient revealed presence of pneumonia, patient also has a chronic history of atrial fibrillation and has been on cefazolin hypertension hypertensive cardiovascular disease, patient oxygen is marginal 89%, also significant labs include sore per day she was 3.1 BUN/creatinine 50/1.86, testing came back positive for covert 19 pneumonia, his chest x-ray positive for interstitial pneumonia left more than the right Assessment: Acute interstitial pneumonia due to covid 19 pneumonia Acute hypoxic respiratory failure Community-acquired pneumonia Chronic atrial fibrillation Hypertension hypertensive cardiovascular disease Acute on Chronic renal failure Intravascular volume depletion and dehydration Patient Condition at Discharge: Good Plan - Discharge Summary New Discharge Prescriptions: New Dexamethasone [Decadron] 6 mg PO DAILY #10 tablet Continue Edoxaban Tosylate [Savaysa] 60 mg PO HS Budesonide-Formot 160-4.5 Mcg [Symbicort 160-4.5 Mcg Inhaler] 2 puff INHALATION RT-BID Albuterol Sulfate [Proair Respiclick] 2 puff INHALATION RT-QID PRN PRN Reason: Shortness Of Breath Montelukast [Singulair] 10 mg PO HS Metoprolol Tartrate [Lopressor] 25 mg PO HS Metoprolol Tartrate [Lopressor] 50 mg PO DAILY@1200 Metoprolol Tartrate [Lopressor] 75 mg PO DAILY@0800 lisinopriL [Zestril] 20 mg PO DAILY hydroCHLOROthiazide [Hydrodiuril] 12.5 mg PO DAILY Vitamin D3(Unknown) 1 tab PO DAILY@1200 Zinc(Unknown) 1 tab PO DAILY@1200 Discharge Medication List Albuterol Sulfate [Proair Respiclick] 2 puff INHALATION RT-QID PRN 06/14/19 [History] Budesonide-Formot 160-4.5 Mcg [Symbicort 160-4.5 Mcg Inhaler] 2 puff INHALATION RT-BID 06/14/19 [History] Edoxaban Tosylate [Savaysa] 60 mg PO HS 06/14/19 [History] Metoprolol Tartrate [Lopressor] 25 mg PO HS 06/14/19 [History] Metoprolol Tartrate [Lopressor] 50 mg PO DAILY@1200 06/14/19 [History] Metoprolol Tartrate [Lopressor] 75 mg PO DAILY@0800 06/14/19 [History] Montelukast [Singulair] 10 mg PO HS 06/14/19 [History] hydroCHLOROthiazide [Hydrodiuril] 12.5 mg PO DAILY 06/14/19 [History] lisinopriL [Zestril] 20 mg PO DAILY 06/14/19 [History] Vitamin D3(Unknown) 1 tab PO DAILY@1200 08/20/20 [History] Zinc(Unknown) 1 tab PO DAILY@1200 08/20/20 [History] Dexamethasone [Decadron] 6 mg PO DAILY #10 tablet 08/23/20 [Rx] Follow up Appointment(s)/Referral(s): Adrian Farias MD [Primary Care Provider] - 1-2 days James Harris DO [Doctor of Osteopathic Medicine] - 1 Week Discharge Disposition: HOME SELF-CARE
== END 2020-08-23 19:54 | disposition home or self-care (01) | DRG 177 ==
LOC: EC 15:19 → 6NMEDSUR 17:27
PROVIDERS: ADMIT Internal Medicine Sleep Medicine; ATTEND Internal Medicine Sleep Medicine
PROC: XW033E5 Introduction of Remdesivir Anti-infective into Peripheral Vein, Percutaneous Approach, New Technology Group 5 (ICD-10-PCS; principal; 2020-08-20)
DX: U07.1 COVID-19 (principal); J12.89 Other viral pneumonia; J96.01 Acute respiratory failure with hypoxia; I48.20 Chronic atrial fibrillation, unspecified; J84.9 Interstitial pulmonary disease, unspecified; N17.9 Acute kidney failure, unspecified; I13.10 Hypertensive heart and chronic kidney disease without heart failure, with stage 1 through stage 4 chronic kidney disease, or unspecified chronic kidney disease; E66.9 Obesity, unspecified; E86.0 Dehydration; E87.6 Hypokalemia; J45.909 Unspecified asthma, uncomplicated; M19.90 Unspecified osteoarthritis, unspecified site; N18.9 Chronic kidney disease, unspecified; Z68.32 Body mass index [BMI] 32.0-32.9, adult; Z79.51 Long term (current) use of inhaled steroids; Z79.899 Other long term (current) drug therapy; Z96.643 Presence of artificial hip joint, bilateral; R11.0 Nausea; R19.7 Diarrhea, unspecified
CPT/HCPCS: 36415; 71046; 80048; 80053; 83605; 83880; 84132; 84484; 85025; 85379; 85610; 85730; 87040; 87324; 87636; 93005; 94640; 96361; 96365; 96375; 99285

== ENCOUNTER 2020-09-14 13:31 | Emergency (ER) | payer MEDICARE ==
[2020-09-14 13:38] VITALS: RESP 18; TEMP 97.5
--- NOTE | 2020-09-14 14:07 | ED ---
ENT HPI - General Chief complaint: ENT Stated complaint: Nose bleed Time Seen by Provider: 09/14/20 14:04 Source: patient, EMS Mode of arrival: EMS Limitations: no limitations - History of Present Illness Initial comments: 69-year-old male presenting to emergency Department with chief complaint of a nosebleed. Patient states the bleeding began about 2 hours prior to arrival after he shoved a Kleenex tissue in his left nostril and pulled it away. Patient states he attempted to stop the bleeding by putting his left finger into the left nostril and applying pressure. States he called the ambulance and the hot sealing machine operator told him to apply pressure to the both nostrils by clamping the nose. Patient states the bleeding then subsided but the ambulance was a ready there are he came to emergency department for evaluation. Patient states he is on a blood thinner savesa for afib. States she has been on blood thinners for almost a decades. He denies any lightheadedness, dizziness or headache. Denies chest pain shortness of breath. - Related Data Home Medications Medication Instructions Recorded Confirmed Albuterol Sulfate [Proair 2 puff INHALATION RT-QID PRN 06/14/19 08/20/20 Respiclick] Budesonide-Formot 160-4.5 Mcg 2 puff INHALATION RT-BID 06/14/19 08/20/20 [Symbicort 160-4.5 Mcg Inhaler] Edoxaban Tosylate [Savaysa] 60 mg PO HS 06/14/19 08/20/20 Metoprolol Tartrate [Lopressor] 25 mg PO HS 06/14/19 08/20/20 Metoprolol Tartrate [Lopressor] 50 mg PO DAILY@1200 06/14/19 08/20/20 Metoprolol Tartrate [Lopressor] 75 mg PO DAILY@0800 06/14/19 08/20/20 Montelukast [Singulair] 10 mg PO HS 06/14/19 08/20/20 hydroCHLOROthiazide [Hydrodiuril] 12.5 mg PO DAILY 06/14/19 08/20/20 lisinopriL [Zestril] 20 mg PO DAILY 06/14/19 08/20/20 Vitamin D3(Unknown) 1 tab PO DAILY@1200 08/20/20 08/20/20 Zinc(Unknown) 1 tab PO DAILY@1200 08/20/20 08/20/20 Previous Rx's Medication Instructions Recorded Dexamethasone [Decadron] 6 mg PO DAILY #10 tablet 08/23/20 Allergies Allergy/AdvReac Type Severity Reaction Status Date / Time No Known Allergies Allergy Verified 09/14/20 13:38 Review of Systems ROS Statement: Those systems with pertinent positive or pertinent negative responses have been documented in the HPI. ROS Other: All systems not noted in ROS Statement are negative. Past Medical History Past Medical History: Atrial Fibrillation, Asthma, Hypertension, Pneumonia History of Any Multi-Drug Resistant Organisms: None Reported Past Surgical History: Back Surgery, Joint Replacement Additional Past Surgical History / Comment(s): stephanie hip replacements, cardioversions, had laporotomy in past for infection and wound left open to heal Past Anesthesia/Blood Transfusion Reactions: Previous Problems w/ Anesthesia Additional Past Anesthesia/Blood Transfusion Reaction / Comment(s): had trouble with an ileous post op first hip replacement Past Psychological History: No Psychological Hx Reported Smoking Status: Never smoker Past Alcohol Use History: Rare Past Drug Use History: None Reported - Past Family History Mother Family Medical History: No Reported History Additional Family Medical History / Comment(s): at 96 General Exam Limitations: no limitations General appearance: alert, in no apparent distress, obese Head exam: Present: atraumatic, normocephalic, normal inspection Eye exam: Present: normal appearance, PERRL, EOMI Pupils: Present: normal accommodation ENT exam: Present: normal exam, mucous membranes moist, TM's normal bilaterally, normal external ear exam. Absent: normal oropharynx (Residual blood noted in the left nostril. No active bleeding at this time. I was not able to detect the source of the bleed.) Neck exam: Present: normal inspection. Absent: tenderness Respiratory exam: Present: normal lung sounds bilaterally. Absent: respiratory distress, wheezes, rales Cardiovascular Exam: Present: regular rate, normal rhythm, normal heart sounds Extremities exam: Present: normal inspection, full ROM, normal capillary refill Back exam: Present: normal inspection, full ROM Neurological exam: Present: alert, oriented X3, normal gait Psychiatric exam: Present: normal affect, normal mood Skin exam: Present: warm, dry, intact, normal color Course Vital Signs 09/14/20 09/14/20 09/14/20 13:32 13:38 14:20 Temperature 97.5 F L Pulse Rate 98 101 H 88 Respiratory 18 18 18 Rate Blood Pressure 94/75 135/87 134/83 O2 Sat by Pulse 94 L 94 L 95 Oximetry Medical Decision Making - Medical Decision Making 69-year-old male presenting to the emergency department with chief complaint of a nosebleed. On physical examination, he does have residual blood noted in the left nostril but nothing in the posterior pharynx. I was not able to detect a source of the bleed. No cauterization performed. Patient was given a nose clamp and Afrin. Advised to only apply 2 sprays and then placed a clamp next time he develops a nosebleed. Advised to stay away from highly ventilatory areas. Advised to apply Vaseline once in the morning and at night. Advised to use Christian Whitfield as needed. Advised to follow up with ENT. Return parameters discussed the patient was understanding and agreeable. Case discussed with physician. Disposition Clinical Impression: Left-sided epistaxis Disposition: HOME SELF-CARE Condition: Stable Instructions (If sedation given, give patient instructions): Nosebleed (ED) Additional Instructions: Apply Vaseline in both nostrils twice a day. Use Christian Whitfield daily. Use the Afrin sprayed and then clamped the nose if you have another recurrent episode of bleeding. Follow-up with ENT as needed. Is patient prescribed a controlled substance at d/c from ED?: No Referrals: Adrian Farias MD [Primary Care Provider] - 1-2 days Naun Brannon DO [Doctor of Osteopathic Medicine] - 1-2 days Time of Disposition: 14:29
[2020-09-14 14:20] VITALS: BP 134/83; PULSE 88
[2020-09-14] MEDS ORDERED: OXYMETAZOLINE 0.05% NASL SPRAY 1 SPRAY BOTTLE NASAL STA (14:20)
== END 2020-09-14 14:47 | disposition home or self-care (01) ==
LOC: EC 13:31
DX: R04.0 Epistaxis (principal); I10 Essential (primary) hypertension; J45.909 Unspecified asthma, uncomplicated; I48.91 Unspecified atrial fibrillation; Z79.899 Other long term (current) drug therapy; Z79.51 Long term (current) use of inhaled steroids; Z96.643 Presence of artificial hip joint, bilateral
CPT/HCPCS: 99283

== ENCOUNTER 2020-10-05 17:42 | Emergency (ER) | payer MEDICARE ==
[2020-10-05 17:52] VITALS: RESP 20
[2020-10-05] MEDS ORDERED: ACETAMINOPHEN TAB 500 MG TAB PO STA (18:41)
[2020-10-05] MEDS ORDERED: SODIUM CHLORIDE 0.9% 500 ML 500 ML IV STA (18:55)
--- NOTE | 2020-10-05 18:58 | ED ---
General Adult HPI - General Chief complaint: Fever Stated complaint: +Covid, SOB Time Seen by Provider: 10/05/20 18:35 Source: patient Mode of arrival: wheelchair Limitations: no limitations - History of Present Illness Initial comments: Dictation was produced using [employer] dictation software. please excuse any grammatical, word or spelling errors. This patient was cared for during a federal and state declared state of emergency secondary to Covid 19 Chief Complaint: 62-year-old male with past medical history of A. fib, asthma, hypertension presents emergency department for fever chills status post coronavirus vaccine History of Present Illness: Is a 62-year-old male he got the coronavirus vaccine yesterday. Several hours after the vaccine he began having constitutional symptoms. Patient states that he's been having fever and chills and some myalgias. Patient denies any sore throat Raynaud's or cough. He did have Covid 19 back in July. Patient has any diarrhea. No abdominal pain. The ROS documented in this emergency department record has been reviewed and confirmed by me. Those systems with pertinent positive or negative responses have been documented in the HPI. All other systems are other negative and/or noncontributory. PHYSICAL EXAM: General Impression: Alert and oriented x3, not in acute distress HEENT: Normocephalic atraumatic, extra-ocular movements intact, pupils equal and reactive to light bilaterally, mucous membranes moist. Cardiovascular: Heart regular rate and rhythm Chest: Able to complete full sentences, no retractions, no tachypnea Abdomen: abdomen soft, non-tender, non-distended, no organomegaly Musculoskeletal: Pulses present and equal in all extremities, no peripheral edema Motor: no focal deficits noted Neurological: CN II-XII grossly intact, no focal motor or sensory deficits noted Skin: Intact with no visualized rashes Psych: Normal affect and mood ED course: 70-year-old male presents with post-Covid vaccine constitutional symptoms. Vital signs upon arrival shows temperature 101.5, heart rate of 109, worse vital signs within acceptable limits. Chest x-ray shows moderate perihilar and bibasilar opacities concerning for infiltrates. Laboratory evaluation obtained showing no acute processes. Rotavirus is not detected. Patient be given prescription for Z-Jose Manuel. Patient will be discharged. Glucose presentation concerning for pneumonia. Showing any signs of sepsis. Patient is agreeable with discharge. Temperature was discussed. - Related Data Home Medications Medication Instructions Recorded Confirmed Albuterol Sulfate [Proair 2 puff INHALATION RT-QID PRN 06/14/19 10/05/20 Respiclick] Budesonide-Formot 160-4.5 Mcg 2 puff INHALATION RT-BID@0800,199906/14/19 10/05/20 [Symbicort 160-4.5 Mcg Inhaler] Edoxaban Tosylate [Savaysa] 60 mg PO HS 06/14/19 10/05/20 Metoprolol Tartrate [Lopressor] 25 mg PO HS 06/14/19 10/05/20 Metoprolol Tartrate [Lopressor] 50 mg PO DAILY@1200 06/14/19 10/05/20 Metoprolol Tartrate [Lopressor] 75 mg PO DAILY@0800 06/14/19 10/05/20 Montelukast [Singulair] 10 mg PO HS 06/14/19 10/05/20 hydroCHLOROthiazide [Hydrodiuril] 12.5 mg PO DAILY@0800 06/14/19 10/05/20 lisinopriL [Zestril] 20 mg PO DAILY@0800 06/14/19 10/05/20 Acetaminophen [Tylenol] 650 mg PO ONCE PRN 10/05/20 10/05/20 Calcium Carbonate/Vitamin D3 1 tab PO DAILY@0800 10/05/20 10/05/20 [Calcium 600 mg-D3 20 mcg (800 unit)] Ferrous Sulfate [Iron (65 MG 325 mg PO DAILY@0800 10/05/20 10/05/20 Elemental)] Previous Rx's Medication Instructions Recorded Azithromycin [Zithromax Z-pack] 0 mg PO DIRECTED #6 tab 10/05/20 Allergies Allergy/AdvReac Type Severity Reaction Status Date / Time No Known Allergies Allergy Verified 10/05/20 19:32 Review of Systems ROS Statement: Those systems with pertinent positive or pertinent negative responses have been documented in the HPI. ROS Other: All systems not noted in ROS Statement are negative. Past Medical History Past Medical History: Atrial Fibrillation, Asthma, Hypertension, Pneumonia History of Any Multi-Drug Resistant Organisms: None Reported Past Surgical History: Back Surgery, Joint Replacement Additional Past Surgical History / Comment(s): stephanie hip replacements, cardioversions, had laporotomy in past for infection and wound left open to heal Past Anesthesia/Blood Transfusion Reactions: Previous Problems w/ Anesthesia Additional Past Anesthesia/Blood Transfusion Reaction / Comment(s): had trouble with an ileous post op first hip replacement Past Psychological History: No Psychological Hx Reported Smoking Status: Never smoker Past Alcohol Use History: None Reported Past Drug Use History: None Reported - Past Family History Mother Family Medical History: No Reported History Additional Family Medical History / Comment(s): at 96 General Exam Limitations: no limitations Course Vital Signs 10/05/20 10/05/20 17:47 20:27 Temperature 101.5 F H 99.7 F H Pulse Rate 109 H 96 Respiratory 20 20 Rate Blood Pressure 150/78 134/87 O2 Sat by Pulse 99 95 Oximetry Medical Decision Making - Lab Data Result diagrams: 10/05/20 20:18 10/05/20 20:18 Lab Results 10/05/20 10/05/20 10/05/20 Range/Units 20:18 20:18 20:18 WBC 9.6 (3.8-10.6) k/uL RBC 4.26 L (4.30-5.90) m/uL Hgb 13.0 (13.0-17.5) gm/dL Hct 38.4 L (39.0-53.0) % MCV 90.2 (80.0-100.0) fL MCH 30.6 (25.0-35.0) pg MCHC 33.9 (31.0-37.0) g/dL RDW 15.4 (11.5-15.5) % Plt Count 171 (150-450) k/uL MPV 7.3 Neutrophils % 87 % Lymphocytes % 6 % Monocytes % 4 % Eosinophils % 1 % Basophils % 1 % Neutrophils # 8.3 H (1.3-7.7) k/uL Lymphocytes # 0.6 L (1.0-4.8) k/uL Monocytes # 0.4 (0-1.0) k/uL Eosinophils # 0.1 (0-0.7) k/uL Basophils # 0.1 (0-0.2) k/uL Sodium 134 L (137-145) mmol/L Potassium 3.6 (3.5-5.1) mmol/L Chloride 101 (98-107) mmol/L Carbon Dioxide 24 (22-30) mmol/L Anion Gap 9 mmol/L BUN 12 (9-20) mg/dL Creatinine 0.85 (0.66-1.25) mg/dL Est GFR (CKD-EPI)AfAm >90 (>60 ml/min/1.73 sqM) Est GFR (CKD-EPI)NonAf 90 (>60 ml/min/1.73 sqM) Glucose 105 H (74-99) mg/dL Plasma Lactic Acid Armand 0.9 (0.7-2.0) mmol/L Calcium 8.2 L (8.4-10.2) mg/dL Coronavirus (PCR) (Not Detectd) 10/05/20 Range/Units 20:18 WBC (3.8-10.6) k/uL RBC (4.30-5.90) m/uL Hgb (13.0-17.5) gm/dL Hct (39.0-53.0) % MCV (80.0-100.0) fL MCH (25.0-35.0) pg MCHC (31.0-37.0) g/dL RDW (11.5-15.5) % Plt Count (150-450) k/uL MPV Neutrophils % % Lymphocytes % % Monocytes % % Eosinophils % % Basophils % % Neutrophils # (1.3-7.7) k/uL Lymphocytes # (1.0-4.8) k/uL Monocytes # (0-1.0) k/uL Eosinophils # (0-0.7) k/uL Basophils # (0-0.2) k/uL Sodium (137-145) mmol/L Potassium (3.5-5.1) mmol/L Chloride (98-107) mmol/L Carbon Dioxide (22-30) mmol/L Anion Gap mmol/L BUN (9-20) mg/dL Creatinine (0.66-1.25) mg/dL Est GFR (CKD-EPI)AfAm (>60 ml/min/1.73 sqM) Est GFR (CKD-EPI)NonAf (>60 ml/min/1.73 sqM) Glucose (74-99) mg/dL Plasma Lactic Acid Armand (0.7-2.0) mmol/L Calcium (8.4-10.2) mg/dL Coronavirus (PCR) Not Detected (Not Detectd) Disposition Clinical Impression: Pneumonia Disposition: HOME SELF-CARE Condition: Good Instructions (If sedation given, give patient instructions): Fever in Adults (ED) Prescriptions: Azithromycin [Zithromax Z-pack] 0 mg PO DIRECTED #6 tab Is patient prescribed a controlled substance at d/c from ED?: No Referrals: Adrian Farias MD [Primary Care Provider] - 1-2 days Time of Disposition: 20:56
--- NOTE | 2020-10-05 19:32 | XR ---
EXAMINATION TYPE: XR chest 1V portable DATE OF EXAM: 10/05/2020 COMPARISON: 08/20/2020. HISTORY: Fever and shortness of breath. TECHNIQUE: Single frontal view of the chest is obtained. FINDINGS: There is moderate perihilar and bibasilar hazy opacities. No significant pleural effusion, or pneumothorax seen. The cardiac silhouette size is within normal limits. The osseous structures are intact. IMPRESSION: Moderate perihilar and bibasilar opacities, concerning for infiltrates.
[2020-10-05 20:31] LABS: Basophils # (A) 0.1 k/uL (0-0.2); Basophils % (A) 1 %; Eosinophils # (A) 0.1 k/uL (0-0.7); Eosinophils % (A) 1 %; HCT 38.4 % (39.0-53.0); Lymphocytes # (A) 0.6 k/uL (1.0-4.8); Lymphocytes % (A) 6 %; MCH 30.6 pg (25.0-35.0); MCHC 33.9 g/dL (31.0-37.0); MCV 90.2 fL (80.0-100.0); Mean Platelet Volume 7.3; Monocytes # (A) 0.4 k/uL (0-1.0); Monocytes % (A) 4 %; Neutrophils # (A) 8.3 k/uL (1.3-7.7); Neutrophils % (A) 87 %; Platelet Count 171 k/uL (150-450); RBC 4.26 m/uL (4.30-5.90); RDW 15.4 % (11.5-15.5); WBC 9.6 k/uL (3.8-10.6)
[2020-10-05 20:48] LABS: African American GFR (CKD) >90 (>60 ml/min/1.73 sqM); Anion Gap 9 mmol/L; Blood Urea Nitrogen 12 mg/dL (9-20); Calcium 8.2 mg/dL (8.4-10.2); Carbon Dioxide 24 mmol/L (22-30); Chloride 101 mmol/L (98-107); Glucose 105 mg/dL (74-99); Non-African American GFR(CKD) 90 (>60 ml/min/1.73 sqM); Potassium 3.6 mmol/L (3.5-5.1); Sodium 134 mmol/L (137-145)
[2020-10-05] MEDS ORDERED: AZITHROMYCIN 500 MG TAB PO STA (20:56)
[2020-10-05 21:16] VITALS: BP 123/73; PULSE 84; TEMP 99.4
== END 2020-10-05 21:17 | disposition home or self-care (01) ==
LOC: EC 17:42
DX: J18.9 Pneumonia, unspecified organism (principal); I10 Essential (primary) hypertension; I48.91 Unspecified atrial fibrillation; J45.909 Unspecified asthma, uncomplicated; Z20.822 Contact with and (suspected) exposure to COVID-19; Z79.01 Long term (current) use of anticoagulants; Z79.51 Long term (current) use of inhaled steroids; Z79.899 Other long term (current) drug therapy; Z96.643 Presence of artificial hip joint, bilateral
CPT/HCPCS: 36415; 71045; 80048; 83605; 85025; 87635; 96360; 99283

== ENCOUNTER → 2020-10-24 | Outpatient (CLI) | payer MEDICARE ==
[2020-10-24 10:40] LABS: African American GFR (CKD) >90 (>60 ml/min/1.73 sqM); Blood Urea Nitrogen 10 mg/dL (9-20); Non-African American GFR(CKD) 87 (>60 ml/min/1.73 sqM)
--- NOTE | 2020-10-24 13:05 | CT ---
EXAMINATION TYPE: CT angio chest DATE OF EXAM: 10/24/2020 COMPARISON: Radiograph 10/05/2020 HISTORY: 70-year-old male U07.1, COVID 19, follow up TECHNIQUE: Contiguous axial scanning of the chest performed with IV Contrast, patient injected with 1 00 mL of Isovue 370. Coronal/sagittal MIP reconstructions performed. CT DLP: 1434 mGycm Automated exposure control for dose reduction was used. FINDINGS: Heart normal size without pericardial effusion. No flattening of the interventricular septum reflux o f contrast into the hepatic veins. Mild aneurysm ascending aorta 4.1 cm. Conventional arch vessel branching anatomy. Large caliber to the main right and left pulmonary arteries measuring up to 3.1 cm. No pulmonary embo ousmane is visualized. Numerous nonenlarged and borderline sized mediastinal lymph nodes. Largest in the precarinal region measuring 1.0 cm. 2.0 cm subcarinal lymph node. 8 mm lower left paraesophageal lymph node. There is a small left pleural effusion there is some lobulated and irregular pleural parenchymal thic kening along the posterior left apex. Volume loss with bandlike opacity in the posterior right upper lobe, central left upper lobe, and inf erior lingula. 1.4 cm nodular density left upper lobe, axial image 51. 6 mm anterior left upper lobe, axial image 44. 6 mm lateral left midlung pulmonary nodule, axial image 109. 6 mm anterior right lower lobe pulmonary nodule, axial image 120. 8 mm anterior right middle lobe pulmonary nodule, axial image 129. Mild centrilobular emphysema. Scattered septal lines. Visualized upper abdomen shows no gross abnormality. Bones: DISH within the mid to lower thoracic spine. IMPRESSION: 1. CORRELATE WITH PATIENT'S FLUID STATUS AND EXCLUDE MILD CHF GIVEN THE SMALL LEFT EFFUSION, PULMONAR Y ARTERIAL HYPERTENSION, AND SCATTERED SEPTAL LINES. NO EVIDENCE FOR PULMONARY EMBOLUS. 2. PLEURAL PARENCHYMAL OPACITIES, LEFT GREATER THAN RIGHT. IN THE SETTING OF PREVIOUS COVID PNEUMONIA , THIS COULD REPRESENT PROMINENT AREAS OF SCARRING. SIX-MONTH FOLLOW-UP CT TO REASSESS. 3. BILATERAL PULMONARY NODULES MEASURING UP TO 1.4 CM SHOULD ALSO BE REASSESSED AT THAT TIME. 4. COPD WITH MILD EMPHYSEMA. MILD ASCENDING AORTIC ANEURYSM AT 4.1 CM.
== END | disposition home or self-care (01) ==
LOC: RADCTMAIN 10:01
PROVIDERS: ATTEND Internal Medicine Critical Care Medicine
DX: J43.9 Emphysema, unspecified (principal); I71.2 Thoracic aortic aneurysm, without rupture; R91.8 Other nonspecific abnormal finding of lung field; J98.8 Other specified respiratory disorders; J98.4 Other disorders of lung; Z86.16 Personal history of COVID-19
CPT/HCPCS: 94726; 94729; 94060; 82565; 84520; 71275; 36415; Q9967

== ENCOUNTER 2021-05-09 17:20 | Emergency (ER) | payer MEDICARE ==
[2021-05-09 17:26] VITALS: BP 168/93; PULSE 77; RESP 18; TEMP 98.8
--- NOTE | 2021-05-09 18:14 | XR ---
EXAMINATION TYPE: XR foot complete LT DATE OF EXAM: 05/09/2021 COMPARISON: NONE HISTORY: Pain. Redness TECHNIQUE: 2 views FINDINGS: There is plantar calcaneal spurring. I see no fracture nor dislocation. There is Achilles c alcaneal spurring. Tarsal bones are intact. IMPRESSION: Calcaneal spurring. No fracture seen. No evidence of a foreign body.
--- NOTE | 2021-05-09 18:33 | ED ---
General Adult HPI - General Chief complaint: Extremity Injury, Lower Stated complaint: foot pain Time Seen by Provider: 05/09/21 17:27 Source: patient, RN notes reviewed Mode of arrival: ambulatory Limitations: no limitations - History of Present Illness Initial comments: 70-year-old male presents to the emergency room for chief complaint of left foot injury. Patient states 2 days ago he was walking in his basement barefoot and felt himself step on a sharp object. States he had pain on the bottom of the left foot. States this persisted yesterday and he thought he had something in his foot. He was seen at urgent care and the did not see any foreign bodies so wanted him to follow up with his doctor. Today he started to have redness to the top of his foot. States that he was unsure this is an infection and wanted to be seen. Patient states that he does not have any pain anymore in the left foot. He denies history of diabetes.he was not wearing shoes when he stepped on this possible object. Patient has no other complaints at this time including shortness of breath, chest pain, abdominal pain, nausea or vomiting, headache, or visual changes. - Related Data Home Medications Medication Instructions Recorded Confirmed Albuterol Sulfate [Proair 2 puff INHALATION RT-QID PRN 06/14/19 10/05/20 Respiclick] Budesonide-Formot 160-4.5 Mcg 2 puff INHALATION RT-BID@0800,199906/14/19 10/05/20 [Symbicort 160-4.5 Mcg Inhaler] Edoxaban Tosylate [Savaysa] 60 mg PO HS 06/14/19 10/05/20 Metoprolol Tartrate [Lopressor] 25 mg PO HS 06/14/19 10/05/20 Metoprolol Tartrate [Lopressor] 50 mg PO DAILY@1200 06/14/19 10/05/20 Metoprolol Tartrate [Lopressor] 75 mg PO DAILY@0800 06/14/19 10/05/20 Montelukast [Singulair] 10 mg PO HS 06/14/19 10/05/20 hydroCHLOROthiazide [Hydrodiuril] 12.5 mg PO DAILY@0800 06/14/19 10/05/20 lisinopriL [Zestril] 20 mg PO DAILY@0800 06/14/19 10/05/20 Acetaminophen [Tylenol] 650 mg PO ONCE PRN 10/05/20 10/05/20 Calcium Carbonate/Vitamin D3 1 tab PO DAILY@0800 10/05/20 10/05/20 [Calcium 600 mg-D3 20 mcg (800 unit)] Ferrous Sulfate [Iron (65 MG 325 mg PO DAILY@0800 10/05/20 10/05/20 Elemental)] Previous Rx's Medication Instructions Recorded Azithromycin [Zithromax Z-pack] 0 mg PO DIRECTED #6 tab 10/05/20 Cephalexin [Keflex] 500 mg PO Q6HR 10 Days #40 cap 05/09/21 Allergies Allergy/AdvReac Type Severity Reaction Status Date / Time No Known Allergies Allergy Verified 05/09/21 17:20 Review of Systems ROS Statement: Those systems with pertinent positive or pertinent negative responses have been documented in the HPI. ROS Other: All systems not noted in ROS Statement are negative. Past Medical History Past Medical History: Atrial Fibrillation, Asthma, Hypertension, Pneumonia History of Any Multi-Drug Resistant Organisms: None Reported Past Surgical History: Back Surgery, Joint Replacement Additional Past Surgical History / Comment(s): stephanie hip replacements, cardioversions, had laporotomy in past for infection and wound left open to heal Past Anesthesia/Blood Transfusion Reactions: Previous Problems w/ Anesthesia Additional Past Anesthesia/Blood Transfusion Reaction / Comment(s): had trouble with an ileous post op first hip replacement Past Psychological History: No Psychological Hx Reported Smoking Status: Never smoker Past Alcohol Use History: None Reported Past Drug Use History: None Reported - Past Family History Mother Family Medical History: No Reported History Additional Family Medical History / Comment(s): at 96 General Exam Limitations: no limitations General appearance: alert, in no apparent distress Head exam: Present: atraumatic Eye exam: Present: normal appearance, PERRL, EOMI. Absent: scleral icterus, conjunctival injection ENT exam: Present: normal exam, mucous membranes moist Neck exam: Present: normal inspection, full ROM. Absent: tenderness Respiratory exam: Present: normal lung sounds bilaterally. Absent: respiratory distress, wheezes Cardiovascular Exam: Present: regular rate, normal rhythm, normal heart sounds Extremities exam: Present: full ROM (Full range motion of the left foot.), normal capillary refill (Capillary refill less than 2 seconds, DP pulse 2+ left lower extremity), other (Mild erythema noted to the dorsum of the left forefoot. No evidence of foreign body in the plantar aspect of the foot.) Course Vital Signs 05/09/21 17:21 Temperature 98.8 F Pulse Rate 77 Respiratory 18 Rate Blood Pressure 168/93 O2 Sat by Pulse 96 Oximetry Medical Decision Making - Medical Decision Making Vitals are stable. HPI and physical exam as documented. Pertinent for redness on the dorsum of the forefoot. Neurovascular status intact. No evidence of foreign body on the plantar aspect of the left foot. X-ray of the left foot shows calcaneal spurring without fracture seen. At this time we'll start patient on Keflex. It when he follow-up with his doctor for redness. If pain starts again he can follow up with orthopedics as well. Referral given. He will return here for any worsening symptoms which were discussed with him. Disposition Clinical Impression: Cellulitis of foot Disposition: HOME SELF-CARE Condition: Good Instructions (If sedation given, give patient instructions): Cellulitis (ED) Additional Instructions: Please take antibiotic as directed. Monitor for spreading redness. If redness is spreading significantly return to the emergency room. Otherwise follow-up with your doctor in one to 2 days. if pain persists in the bottom of the foot follow up with orthopedics Prescriptions: Cephalexin [Keflex] 500 mg PO Q6HR 10 Days #40 cap Is patient prescribed a controlled substance at d/c from ED?: No Referrals: Adrian Farias MD [Primary Care Provider] - 1-2 days Tay Portillo MD [Medical Doctor] - 1-2 days Time of Disposition: 18:42
[2021-05-09] MEDS ORDERED: CEPHALEXIN 500MG STARTER PACK 4 CAP BTL PO STA (18:50)
== END 2021-05-09 18:51 | disposition home or self-care (01) ==
LOC: EC 17:20
DX: L03.116 Cellulitis of left lower limb (principal); I10 Essential (primary) hypertension; J45.909 Unspecified asthma, uncomplicated; I48.91 Unspecified atrial fibrillation; Z79.51 Long term (current) use of inhaled steroids
CPT/HCPCS: 99283

== ENCOUNTER → 2021-05-24 | Outpatient (CLI) | payer MEDICARE ==
[2021-05-24 13:37] LABS: African American GFR (CKD) >90 (>60 ml/min/1.73 sqM); Blood Urea Nitrogen 11 mg/dL (9-20); Non-African American GFR(CKD) 88 (>60 ml/min/1.73 sqM)
--- NOTE | 2021-05-24 14:42 | CT ---
EXAMINATION TYPE: CT chest w con DATE OF EXAM: 05/24/2021 COMPARISON: 10/24/2020 HISTORY: pulmonary fibrosis CT DLP: 977 mGycm Automated exposure control for dose reduction was used. CONTRAST: CT scan of the chest is performed with IV Contrast, patient injected with 100 mL of Isovue 300. FINDINGS: LUNGS: Trace left-sided pleural effusion and pleural thickening improved from prior study. Biapical s carring noted left greater than right with chronic parenchymal density seen. Overall appearance is im proved relative to the prior study. Nodular infiltrate seen previously have improved. MEDIASTINUM: There are no greater than 1 cm hilar or mediastinal lymph nodes. No pericardial effusi on is seen. Thoracic aorta is of normal caliber. The heart is not enlarged. UPPER ABDOMEN: Small polyp or gallstone noted. OTHER: No additional significant abnormality is seen. IMPRESSION: Trace left-sided pleural effusion and pleural thickening improved from prior study. Biapical scarring noted left greater than right with chronic parenchymal density seen. Overall appearance is improved relative to the prior study. Nodular infiltrate seen previously have improved.
== END | disposition home or self-care (01) ==
LOC: RADCTMAIN 12:44
PROVIDERS: ATTEND Internal Medicine Critical Care Medicine
DX: J98.4 Other disorders of lung (principal); J90 Pleural effusion, not elsewhere classified; J92.9 Pleural plaque without asbestos
CPT/HCPCS: 82565; 84520; 71260; 36415; Q9967

== ENCOUNTER 2021-12-08 16:39 | Emergency (ER) | payer MEDICARE ==
[2021-12-08] MEDS ORDERED: ALBUTEROL HFA INHALER INHALATION STA (17:24)
[2021-12-08] MEDS ORDERED: DEXAMETHASONE SOD PHOSPHATE 10 MG/ML 1 ML VIAL IM STA (17:26)
[2021-12-08] MEDS ORDERED: DEXAMETHASONE SOD PHOSPHATE 10 MG/ML 1 ML VIAL IVP STA (17:28)
--- NOTE | 2021-12-08 17:32 | ED ---
General Adult HPI - General Chief complaint: Upper Respiratory Infection Stated complaint: SOB, cough Time Seen by Provider: 12/08/21 17:20 Source: patient, family, RN notes reviewed, old records reviewed Mode of arrival: ambulatory Limitations: no limitations - History of Present Illness Initial comments: Well-appearing 71-year-old male presents with his family member complaining of cough and congestion for the past 3 days. He states that he was diagnosed with an upper respiratory infection 3 weeks ago and was given amoxicillin for 10 days. He states his symptoms resolved for over a week and then symptoms started again with congestion and runny nose and cough over the past 3 days. He states he started taking amoxicillin again 2 days ago that he had for any upcoming dental procedures. He denies any fevers, no chest pain, no nausea, vomiting or diarrhea. He did take an at home coronavirus test that was negative. He does have a history of A. fib, asthma and hypertension. -: days(s) (3) Location: back (right lower) Quality: aching Consistency: intermittent Associated Symptoms: cough, other (congestion) - Related Data Home Medications Medication Instructions Recorded Confirmed Budesonide-Formot 160-4.5 Mcg 2 puff INHALATION RT-BID@0800,199906/14/19 12/08/21 [Symbicort 160-4.5 Mcg Inhaler] Metoprolol Tartrate [Lopressor] 25 mg PO HS 06/14/19 12/08/21 Metoprolol Tartrate [Lopressor] 50 mg PO DAILY@1200 06/14/19 12/08/21 Metoprolol Tartrate [Lopressor] 75 mg PO DAILY@0800 06/14/19 12/08/21 Montelukast [Singulair] 10 mg PO HS 06/14/19 12/08/21 lisinopriL [Zestril] 20 mg PO DAILY@0800 06/14/19 12/08/21 Calcium Carbonate [Calcium] 600 mg PO DAILY 12/08/21 12/08/21 Fish Oil/Dha/Epa [Fish Oil 1,200 2 cap PO DAILY 12/08/21 12/08/21 mg Fish Oil] Fluticasone Nasal [place] [Flonase 1 spray EA NOSTRIL DAILY 12/08/21 12/08/21 Nasal [place]] Furosemide [Lasix] 20 mg PO DAILY 12/08/21 12/08/21 Rivaroxaban [Xarelto] 20 mg PO HS 12/08/21 12/08/21 Previous Rx's Medication Instructions Recorded Doxycycline Monohydrate [Monodox] 100 mg PO BID 5 Days #10 cap 12/08/21 predniSONE 50 mg PO DAILY #5 tab 12/08/21 Allergies Allergy/AdvReac Type Severity Reaction Status Date / Time No Known Allergies Allergy Verified 12/08/21 18:58 Review of Systems ROS Statement: Those systems with pertinent positive or pertinent negative responses have been documented in the HPI. ROS Other: All systems not noted in ROS Statement are negative. Past Medical History Past Medical History: Atrial Fibrillation, Asthma, Hypertension, Pneumonia History of Any Multi-Drug Resistant Organisms: None Reported Past Surgical History: Back Surgery, Joint Replacement Additional Past Surgical History / Comment(s): stephanie hip replacements, cardioversions, had laporotomy in past for infection and wound left open to heal Past Anesthesia/Blood Transfusion Reactions: Previous Problems w/ Anesthesia Additional Past Anesthesia/Blood Transfusion Reaction / Comment(s): had trouble with an ileous post op first hip replacement Past Psychological History: No Psychological Hx Reported Smoking Status: Never smoker Past Alcohol Use History: None Reported Past Drug Use History: None Reported - Past Family History Mother Family Medical History: No Reported History Additional Family Medical History / Comment(s): at 96 General Exam Limitations: no limitations General appearance: alert, in no apparent distress Head exam: Present: normocephalic Eye exam: Absent: scleral icterus, conjunctival injection, periorbital swelling ENT exam: Present: normal exam, normal oropharynx, mucous membranes moist Neck exam: Present: normal inspection, full ROM. Absent: tenderness, meningismus, lymphadenopathy, thyromegaly Respiratory exam: Present: wheezes, decreased breath sounds (Right lower lobe). Absent: respiratory distress, rhonchi, stridor, chest wall tenderness, accessory muscle use Cardiovascular Exam: Present: tachycardia. Absent: JVD GI/Abdominal exam: Present: soft. Absent: distended, tenderness Extremities exam: Present: normal capillary refill. Absent: pedal edema Back exam: Present: normal inspection, full ROM. Absent: tenderness, CVA tenderness (R), CVA tenderness (L), rash noted Neurological exam: Present: alert, oriented X3 Psychiatric exam: Present: normal affect, normal mood Skin exam: Present: warm, dry, normal color. Absent: cyanosis, diaphoretic, petechiae, pallor Course Vital Signs 12/08/21 12/08/21 16:42 19:02 Temperature 98 F 97.2 F L Pulse Rate 107 H 87 Respiratory 22 17 Rate Blood Pressure 175/113 144/81 O2 Sat by Pulse 91 L 94 L Oximetry EKG Findings - EKG Results: EKG shows: atrial fibrillation (Ventricular rate of 90, QRS 0.89, QTC 0.423) Medical Decision Making - Medical Decision Making Patient presents with 3 days of cough and congestion. States took a covid test at home was negative today. WBC count 8.2 hemoglobin and hematocrit are stable troponin is negative and EKG shows atrial fibrillation and patient is taking Xarelto. Patient does have a history of asthma and was given Decadron in the emergency room for cough and wheezing. This is likely a viral illness was no evidence of leukocytosis. Patient has not had fevers. He is feeling better after treatment. Case discussed with Dr. Franco, he'll be treated with a five-day course of prednisone and doxycycline for cough with sputum change. He was instructed to follow-up with his primary care doctor as scheduled next week and return to the emergency room with any new or concerning symptoms. Patient and are agreeable to this plan of care. - Lab Data Result diagrams: 12/08/21 17:47 12/08/21 17:47 Lab Results 12/08/21 12/08/21 12/08/21 Range/Units 17:47 17:47 17:47 WBC 8.2 (3.8-10.6) k/uL RBC 5.20 (4.30-5.90) m/uL Hgb 15.6 (13.0-17.5) gm/dL Hct 48.3 (39.0-53.0) % MCV 92.8 (80.0-100.0) fL MCH 30.0 (25.0-35.0) pg MCHC 32.3 (31.0-37.0) g/dL RDW 13.5 (11.5-15.5) % Plt Count 178 (150-450) k/uL MPV 8.0 Neutrophils % 83 % Lymphocytes % 8 % Monocytes % 5 % Eosinophils % 2 % Basophils % 1 % Neutrophils # 6.8 (1.3-7.7) k/uL Lymphocytes # 0.7 L (1.0-4.8) k/uL Monocytes # 0.4 (0-1.0) k/uL Eosinophils # 0.1 (0-0.7) k/uL Basophils # 0.1 (0-0.2) k/uL PT 11.3 (9.0-12.0) sec INR 1.0 (<1.2) APTT 26.6 (22.0-30.0) sec Sodium 138 (137-145) mmol/L Potassium 4.6 (3.5-5.1) mmol/L Chloride 106 (98-107) mmol/L Carbon Dioxide 25 (22-30) mmol/L Anion Gap 7 mmol/L BUN 14 (9-20) mg/dL Creatinine 0.90 (0.66-1.25) mg/dL Est GFR (CKD-EPI)AfAm >90 (>60 ml/min/1.73 sqM) Est GFR (CKD-EPI)NonAf 87 (>60 ml/min/1.73 sqM) Glucose 112 H (74-99) mg/dL Calcium 8.3 L (8.4-10.2) mg/dL Magnesium 2.0 (1.6-2.3) mg/dL Total Bilirubin 2.6 H (0.2-1.3) mg/dL AST 45 (17-59) U/L ALT 26 (4-49) U/L Alkaline Phosphatase 77 (38-126) U/L Troponin I (0.000-0.034) ng/mL Total Protein 7.4 (6.3-8.2) g/dL Albumin 4.0 (3.5-5.0) g/dL 12/08/21 Range/Units 17:47 WBC (3.8-10.6) k/uL RBC (4.30-5.90) m/uL Hgb (13.0-17.5) gm/dL Hct (39.0-53.0) % MCV (80.0-100.0) fL MCH (25.0-35.0) pg MCHC (31.0-37.0) g/dL RDW (11.5-15.5) % Plt Count (150-450) k/uL MPV Neutrophils % % Lymphocytes % % Monocytes % % Eosinophils % % Basophils % % Neutrophils # (1.3-7.7) k/uL Lymphocytes # (1.0-4.8) k/uL Monocytes # (0-1.0) k/uL Eosinophils # (0-0.7) k/uL Basophils # (0-0.2) k/uL PT (9.0-12.0) sec INR (<1.2) APTT (22.0-30.0) sec Sodium (137-145) mmol/L Potassium (3.5-5.1) mmol/L Chloride (98-107) mmol/L Carbon Dioxide (22-30) mmol/L Anion Gap mmol/L BUN (9-20) mg/dL Creatinine (0.66-1.25) mg/dL Est GFR (CKD-EPI)AfAm (>60 ml/min/1.73 sqM) Est GFR (CKD-EPI)NonAf (>60 ml/min/1.73 sqM) Glucose (74-99) mg/dL Calcium (8.4-10.2) mg/dL Magnesium (1.6-2.3) mg/dL Total Bilirubin (0.2-1.3) mg/dL AST (17-59) U/L ALT (4-49) U/L Alkaline Phosphatase (38-126) U/L Troponin I 0.023 (0.000-0.034) ng/mL Total Protein (6.3-8.2) g/dL Albumin (3.5-5.0) g/dL Disposition Clinical Impression: URI (upper respiratory infection) Disposition: HOME SELF-CARE Condition: Good Additional Instructions: Increase fluid intake, take the antibiotics and steroids as prescribed. Follow-up with the primary care doctor next week. Return to the emergency room with any new or concerning symptoms including difficulty breathing or chest pain. Prescriptions: Doxycycline Monohydrate [Monodox] 100 mg PO BID 5 Days #10 cap predniSONE 50 mg PO DAILY #5 tab Is patient prescribed a controlled substance at d/c from ED?: No Referrals: Adrian Farias MD [Primary Care Provider] - 1-2 days Time of Disposition: 18:51
[2021-12-08 18:14] LABS: Basophils # (A) 0.1 k/uL (0-0.2); Basophils % (A) 1 %; Eosinophils # (A) 0.1 k/uL (0-0.7); Eosinophils % (A) 2 %; HCT 48.3 % (39.0-53.0); HGB 15.6 gm/dL (13.0-17.5); Lymphocytes # (A) 0.7 k/uL (1.0-4.8); Lymphocytes % (A) 8 %; MCHC 32.3 g/dL (31.0-37.0); MCV 92.8 fL (80.0-100.0); Monocytes # (A) 0.4 k/uL (0-1.0); Monocytes % (A) 5 %; Neutrophils # (A) 6.8 k/uL (1.3-7.7); Neutrophils % (A) 83 %; Platelet Count 178 k/uL (150-450); RDW 13.5 % (11.5-15.5); WBC 8.2 k/uL (3.8-10.6)
--- NOTE | 2021-12-08 18:16 | XR ---
EXAMINATION TYPE: XR chest 2V DATE OF EXAM: 12/08/2021 COMPARISON: 10/05/2020 HISTORY: Difficulty breathing TECHNIQUE: 4 views FINDINGS: Heart is normal. There is some increased interstitial density in the mid and lower lung fie lds. There is mild pulmonary congestion. There is no pleural effusion. There are curly B lines in the right lower lobe. Bony thorax is intact. IMPRESSION: There is some pulmonary interstitial edema which is new compared to last exam. No pleural fluid seen to suggest heart failure. This could be some interstitial pneumonia.
[2021-12-08 18:23] LABS: Partial Thromboplastin Time 26.6 sec (22.0-30.0); Prothrombin Time 11.3 sec (9.0-12.0)
[2021-12-08 18:24] LABS: ALT 26 U/L (4-49); AST 45 U/L (17-59); African American GFR (CKD) >90 (>60 ml/min/1.73 sqM); Alkaline Phosphatase 77 U/L (38-126); Anion Gap 7 mmol/L; Blood Urea Nitrogen 14 mg/dL (9-20); Calcium 8.3 mg/dL (8.4-10.2); Carbon Dioxide 25 mmol/L (22-30); Chloride 106 mmol/L (98-107); Glucose 112 mg/dL (74-99); Non-African American GFR(CKD) 87 (>60 ml/min/1.73 sqM); Sodium 138 mmol/L (137-145); Total Bilirubin 2.6 mg/dL (0.2-1.3); Total Protein 7.4 g/dL (6.3-8.2)
[2021-12-08 18:36] LABS: Potassium 4.6 mmol/L (3.5-5.1)
[2021-12-08 19:05] VITALS: BP 144/81; PULSE 87; RESP 17; TEMP 97.2
== END 2021-12-08 19:37 | disposition home or self-care (01) ==
LOC: EC 16:39
DX: J06.9 Acute upper respiratory infection, unspecified (principal); J45.909 Unspecified asthma, uncomplicated; I10 Essential (primary) hypertension; I48.91 Unspecified atrial fibrillation; Z79.899 Other long term (current) drug therapy; Z79.51 Long term (current) use of inhaled steroids; Z79.01 Long term (current) use of anticoagulants
CPT/HCPCS: 36415; 94640; 93005; 80053; 83735; 84484; 85025; 85610; 85730; 71046; 99285; 96374; J1100

== ENCOUNTER 2022-02-28 10:27 | Emergency (ER) | payer MEDICARE ==
[2022-02-28 10:40] VITALS: BP 171/87; PULSE 75; RESP 18; TEMP 98
[2022-02-28] MEDS ORDERED: ACETAMINOPHEN TAB 325 MG TAB PO STA (11:58)
--- NOTE | 2022-02-28 12:04 | ED ---
General Adult HPI - General Chief complaint: Skin/Abscess/Foreign Body Stated complaint: Lung pain/skin issues Time Seen by Provider: 02/28/22 11:55 Source: patient Mode of arrival: ambulatory Limitations: no limitations - History of Present Illness Initial comments: Well-appearing 71-year-old male presents to emergency room with complaints of rash to his mid lower back. Patient states has been there for 2 days and he feels pain deep within the lung on the right side. Denies any shortness of breath or chest pain. States that he did take Tylenol last night pain which improved his pain. He has not had any medication today. Denies any fevers, no nausea vomiting or diarrhea. Patient does have a history of prostate cancer, A. fib, asthma and hypertension. -: days(s) (2) Location: back (mid lower back) Radiation: non-radiation Severity scale (1-10): 4 Quality: other (deep) Improves with: medication (tylenol) Associated Symptoms: denies other symptoms Treatments Prior to Arrival: none - Related Data Home Medications Medication Instructions Recorded Confirmed Budesonide-Formot 160-4.5 Mcg 2 puff INHALATION RT-BID@0800,199906/14/19 12/08/21 [Symbicort 160-4.5 Mcg Inhaler] Metoprolol Tartrate [Lopressor] 25 mg PO HS 06/14/19 12/08/21 Metoprolol Tartrate [Lopressor] 50 mg PO DAILY@1200 06/14/19 12/08/21 Metoprolol Tartrate [Lopressor] 75 mg PO DAILY@0800 06/14/19 12/08/21 Montelukast [Singulair] 10 mg PO HS 06/14/19 12/08/21 lisinopriL [Zestril] 20 mg PO DAILY@0800 06/14/19 12/08/21 Calcium Carbonate [Calcium] 600 mg PO DAILY 12/08/21 12/08/21 Fish Oil/Dha/Epa [Fish Oil 1,200 2 cap PO DAILY 12/08/21 12/08/21 mg Fish Oil] Fluticasone Nasal [place] [Flonase 1 spray EA NOSTRIL DAILY 12/08/21 12/08/21 Nasal [place]] Furosemide [Lasix] 20 mg PO DAILY 12/08/21 12/08/21 Rivaroxaban [Xarelto] 20 mg PO HS 12/08/21 12/08/21 Previous Rx's Medication Instructions Recorded Doxycycline Monohydrate [Monodox] 100 mg PO BID 5 Days #10 cap 12/08/21 predniSONE 50 mg PO DAILY #5 tab 12/08/21 Lidocaine 5% Patch [Lidoderm] 1 patch TOPICAL DAILY 14 Days #14 02/28/22 patch valACYclovir HCL [Valtrex] 1 gm PO Q8H 7 Days #21 tablet 02/28/22 Allergies Allergy/AdvReac Type Severity Reaction Status Date / Time No Known Allergies Allergy Verified 12/08/21 18:58 Review of Systems ROS Statement: Those systems with pertinent positive or pertinent negative responses have been documented in the HPI. ROS Other: All systems not noted in ROS Statement are negative. Past Medical History Past Medical History: Atrial Fibrillation, Asthma, Hypertension, Pneumonia History of Any Multi-Drug Resistant Organisms: None Reported Past Surgical History: Back Surgery, Joint Replacement Additional Past Surgical History / Comment(s): stephanie hip replacements, cardioversions, had laporotomy in past for infection and wound left open to heal Past Anesthesia/Blood Transfusion Reactions: Previous Problems w/ Anesthesia Additional Past Anesthesia/Blood Transfusion Reaction / Comment(s): had trouble with an ileous post op first hip replacement Past Psychological History: No Psychological Hx Reported Smoking Status: Never smoker Past Alcohol Use History: None Reported Past Drug Use History: None Reported - Past Family History Mother Family Medical History: No Reported History Additional Family Medical History / Comment(s): at 96 General Exam Limitations: no limitations General appearance: alert, in no apparent distress Head exam: Present: atraumatic Eye exam: Absent: scleral icterus, conjunctival injection Neck exam: Present: normal inspection. Absent: tenderness, meningismus Respiratory exam: Present: rales (Bilateral bases). Absent: respiratory distress, wheezes, rhonchi, stridor, chest wall tenderness, accessory muscle use, decreased breath sounds Cardiovascular Exam: Present: regular rate GI/Abdominal exam: Present: soft. Absent: tenderness, rigid Extremities exam: Present: normal capillary refill (Strong pedal pulses bilaterally). Absent: tenderness, calf tenderness Back exam: Present: rash noted (Back papular rash, right flank maculopapular rash painless). Absent: tenderness, CVA tenderness (R), CVA tenderness (L) Neurological exam: Present: alert, oriented X3 Psychiatric exam: Present: normal affect, normal mood Skin exam: Present: warm, dry. Absent: cyanosis, diaphoretic Course Vital Signs 02/28/22 02/28/22 10:33 11:41 Temperature 98.0 F Pulse Rate 75 Respiratory 18 18 Rate Blood Pressure 171/87 O2 Sat by Pulse 95 Oximetry Medical Decision Making - Medical Decision Making Patient has a papular rash to right mid lower back with another maculopapular rash right side flank. He states the pain is deep inside. There are no vesicles noted however due to the patient's description of deep pain with rash consistent with a dermatomal pattern, patient will be treated for shingles. Chest X-ray shows no acute cardiopulmonary process. Vital signs are stable. Patient in no respiratory distress. Dr. Boateng at bedside agreeable to this plan of care. I did speak to Dr. Abdalla who also recommended Valtrex for treatment of shingles. Patient was also given lidoderm patch prescription for pain. Di rected to follow up with his primary care doctor next week Disposition Clinical Impression: Shingles Disposition: HOME SELF-CARE Condition: Good Instructions (If sedation given, give patient instructions): Shingles (ED) Additional Instructions: Take medications as prescribed. Follow-up with the primary care doctor this week. Return if any new or concerning symptoms. Prescriptions: Lidocaine 5% Patch [Lidoderm] 1 patch TOPICAL DAILY 14 Days #14 patch valACYclovir HCL [Valtrex] 1 gm PO Q8H 7 Days #21 tablet Is patient prescribed a controlled substance at d/c from ED?: No Referrals: Adrian Farias MD [Primary Care Provider] - 1-2 days Time of Disposition: 12:43
--- NOTE | 2022-02-28 12:35 | XR ---
EXAMINATION TYPE: XR chest 2V DATE OF EXAM: 02/28/2022 COMPARISON: Chest x-ray 01/16/2022 HISTORY: Chest pain TECHNIQUE: Frontal and lateral views of the chest are obtained. FINDINGS: There is scarring in the upper lobes, pleural thickening and areas of scarring. No pleural effusion or pneumothorax. The cardiac silhouette size is within normal limits. Prominence of pulmona ry arteries is a stable finding, some retraction of the fanny in a cephalad direction is chronic. The osseous structures are intact. IMPRESSION: No acute cardiopulmonary process. Correlate for pulmonary artery hypertension, apical sc arring is chronic.
== END 2022-02-28 13:21 | disposition home or self-care (01) ==
LOC: EC 10:27
DX: B02.9 Zoster without complications (principal); I10 Essential (primary) hypertension; J45.909 Unspecified asthma, uncomplicated; I48.91 Unspecified atrial fibrillation; Z79.899 Other long term (current) drug therapy; Z79.01 Long term (current) use of anticoagulants; Z79.51 Long term (current) use of inhaled steroids
CPT/HCPCS: 71046; 99283

== ENCOUNTER → 2023-08-01 | Outpatient (CLI) | payer MEDICARE ==
--- NOTE | 2023-08-03 11:33 | PE ---
EXAMINATION TYPE: PET CT fusion skull to thigh DATE OF EXAM: 08/01/2023 CLINICAL INDICATION:Male, 72 years old with history of C61 PROSTATE CANCER; TECHNIQUE: Following the intravenous administration of 5.4 mCi of Ga-68 Illuccix (PSMA), whole body images are performed from the skull base to the midthigh. Images are reviewed on the computer in th e coronal, axial, and sagittal planes. Reconstructed rotating images are created on independent work station and reviewed on the computer. A non-contrast CT is performed in conjunction with the PET sc an. CT DLP: 1100 mGycm, Automated exposure control for dose reduction was used. COMPARISON: CT 05/15/2023, PET/CT None, FINDINGS: Mediastinal SUV mean is 1.4. Hepatic parenchyma SUV mean is and 14.0 . SKULL BASE AND NECK: No suspicious radiotracer activity. CHEST, MEDIASTINUM, AND HILAR REGION: No suspicious radiotracer activity. Streaky atelectasis and/or scarring in the upper lungs atelectasis and bronchovascular crowding. The lung volumes are present. ABDOMEN AND PELVIS: Intense uptake within the prostate gland more so in the central left mid gland max SUV 21.9. Area on PET imaging measures roughly 2.9 x 2.9 cm. MUSCULOSKELETAL STRUCTURES: No suspicious radiotracer activity. OTHER CT: Atherosclerosis of the arterial vasculature. The heart is mildly enlarged for size. Nodular contour to liver compatible with cirrhosis. Cholelithiasis. Normal. Scattered colonic diverticula. S treak artifact from hip prostheses bilaterally evaluation of the pelvis. Osseous structures appear in tact. IMPRESSION: Intense radiotracer uptake within the prostate gland in the left mid gland concerning for primary patti nocarcinoma. Evaluation on imaging is limited due to streak artifact. Correlate with PSA and tissue s ampling if not already performed is recommended. No evidence at this time for metastatic disease.
== END | disposition home or self-care (01) ==
LOC: RADPETMAIN 14:51
PROVIDERS: ATTEND Urology
DX: C61 Malignant neoplasm of prostate (principal); R94.8 Abnormal results of function studies of other organs and systems
CPT/HCPCS: 78815; A9596

== ENCOUNTER → 2023-09-06 | Outpatient (CLI) | payer MEDICARE ==
--- NOTE | 2023-09-07 21:35 | MR ---
EXAMINATION TYPE: MR Prostate wo/w con DATE OF EXAM: 09/06/2023 9:27 AM COMPARISON: Pet/CT 08/01/2023. CLINICAL INDICATION:Male, 72 years old with history of C61 MALIGNANT NEOPLASM OF PROSTATE; Prostate c ancer TECHNIQUE: Multi-planar, multi-sequence imaging of the pelvis is performed prior to and following the uncomplicated administration of bolus intravenous gadolinium. CONTRAST: 12 Gadobutrol Interpretive Criteria: PI-RADS v2.1 SERUM PSA: 19.7 on 06/23/2023. 18.5 on 03/25/2023. 11.9 on 09/24/2022. SURGICAL PATHOLOGY: No data available. FINDINGS: Prostatic dimensions: 5.0 x 4.5 x 4.1 cm. Ellipsoid Volume:48.30 (PSA density=0.41 ng/mL/mL) PROSTATE (PZ): Peripheral zone is limited on diffusion-weighted sequences due to hip arthroplasties and gas in the r ectum. There is lower T2 signal in the area which corresponds with FDG uptake on pet/CT within the le ft central mid gland that extends into the peripheral gland. Area measures 20 x 25 mm and appears ext end into the left seminal vesicles series 701 image 26. There may be low or ADC signal in this region . The diffusion-weighted sequences are seen limited due to susceptibility artifact and gas in the rec nora. (PI-RADS 5) SEMINAL VESICLES (SV): Low signal extending from the primary lesion mentioned above into the left central seminal vesicles PERIPROSTATIC TISSUES: Unremarkable. LYMPH NODES: No enlarged pelvic lymph node. REMAINING PELVIS: Bilateral hip arthroplasties limit evaluation with susceptibility artifact. Bladder wall is within normal limits given distention. No abnormal free or organized intrapelvic fluid collection. No pathologic bowel dilation or mural thickening. No hernia visualized OSSEOUS STRUCTURES: No suspicious osseous abnormality. IMPRESSION: 1. Limited evaluation secondary to susceptibility artifacting gas in the rectum. Area on prior PET/C T demonstrates intermediate lower T2 signal with irregular margins. Tissue sampling recommended of is region to rule out adenocarcinoma versus prostatitis. (PI-RADS 5) 2. Mild BPH, estimated gland volume 48.30 mL. No suspicious osseous lesion. No lymphadenopathy.
== END | disposition home or self-care (01) ==
LOC: RADMRIMAIN 07:54
PROVIDERS: ATTEND Radiology Radiation Oncology
DX: C61 Malignant neoplasm of prostate (principal); N40.0 Benign prostatic hyperplasia without lower urinary tract symptoms
CPT/HCPCS: 72197; A9585

== ENCOUNTER → 2023-09-15 | Outpatient (CLI) | payer MEDICARE ==
[2023-09-15 19:36] LABS: Basophils # (A) 0.05 X 10*3/uL (0.00-0.10); Basophils % (A) 0.8 %; Eosinophils # (A) 0.19 X 10*3/uL (0.04-0.35); Eosinophils % (A) 2.9 %; HCT 46.4 % (39.6-50.0); HGB 14.9 g/dL (13.0-17.0); Lymphocytes # (A) 1.25 X 10*3/uL (0.90-5.00); Lymphocytes % (A) 19.3 %; MCH 29.9 pg (27.0-32.0); MCHC 32.1 g/dL (32.0-37.0); MCV 93.2 FL (80.0-97.0); Mean Platelet Volume 11.8 FL (9.5-12.2); Monocytes # (A) 0.36 X 10*3/uL (0.20-1.00); Monocytes % (A) 5.5 %; NRBC Per 100 WBC 0 X 10*3/uL (0.00-0.01); Neutrophils # (A) 4.63 X 10*3/uL (1.80-7.70); Neutrophils % (A) 71.3 %; Platelet Count 167 X 10*3/uL (140-440); RBC 4.98 X 10*6/uL (4.40-5.60); RDW 14.5 % (11.5-14.5); WBC 6.49 X 10*3/uL (4.50-10.00)
[2023-09-15 21:18] LABS: BUN/Creat Ratio 14.11 Ratio (12.00-20.00); Blood Urea Nitrogen 12.7 mg/dL (9.0-27.0); Calcium 9.1 mg/dL (8.7-10.3); Carbon Dioxide 26.9 mmol/L (21.6-31.8); Chloride 104 mmol/L (96-109); Glucose 99 mg/dL (70-110); Potassium 4.4 mmol/L (3.5-5.5); Sodium 142 mmol/L (135-145)
== END | disposition home or self-care (01) ==
LOC: LABWHC1 13:59
PROVIDERS: ATTEND Urology
DX: Z01.812 Encounter for preprocedural laboratory examination (principal); C61 Malignant neoplasm of prostate
CPT/HCPCS: 36415; 80048; 85025

== ENCOUNTER 2023-09-18 12:40 | Day surgery (SDC) | payer MEDICARE ==
[2023-09-11 09:18] VITALS: BMI 36.3
--- NOTE | 2023-09-15 04:21 | P.GSHP ---
History of Present Illness H&P Date: 09/15/23 Chief Complaint: Prostate cancer The patient is a 72-year-old white male originally diagnosed with prostate cancer July 2021. His PSA level at that time was 6.7, and biopsies showed Mcclelland 6 adenocarcinoma. He elected to be managed with active surveillance. However, his PSA level cheo to 18.50 in March 2023. He underwent repeat prostate biopsies, 3 of which showed Mcclelland 7 (3+4) adenocarcinoma. A PSMA PET/CT scan was negative. He was seen by Dr. Hammond, and has elected to be treated with IMRT and ADT. He now comes for SpaceOAR implant to reduce the risk of radiation induced rectal toxicity. 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 prostate cancer History of Any Multi-Drug Resistant Organisms: None Reported Past Surgical History: Back Surgery, Joint Replacement Additional Past Surgical History / Comment(s): stephanie hip replacements, cardioversions, had laparotomy in past for abdominal infection Past Anesthesia/Blood Transfusion Reactions: No Reported Reaction Additional Past Anesthesia/Blood Transfusion Reaction / Comment(s): had trouble with an ileus post op first hip replacement Past Psychological History: No Psychological Hx Reported Smoking Status: Never smoker Past Alcohol Use History: Rare Past Drug Use History: None Reported - Past Family History Mother Family Medical History: No Reported History Additional Family Medical History / Comment(s): at 96 Medications and Allergies Home Medications Medication Instructions Recorded Confirmed Type Budesonide-Formot 160-4.5 Mcg 2 puff INHALATION RT-BID@0800,199906/14/19 09/11/23 History [Symbicort 160-4.5 Mcg Inhaler] Metoprolol Tartrate [Lopressor] 25 mg PO HS 06/14/19 09/11/23 History Metoprolol Tartrate [Lopressor] 50 mg PO DAILY@1200 06/14/19 09/11/23 History Metoprolol Tartrate [Lopressor] 75 mg PO DAILY@0800 06/14/19 09/11/23 History Montelukast [Singulair] 10 mg PO HS 06/14/19 09/11/23 History lisinopriL [Zestril] 20 mg PO BID 06/14/19 09/11/23 History Furosemide [Lasix] 20 mg PO HS 12/08/21 09/11/23 History Rivaroxaban [Xarelto] 20 mg PO HS 12/08/21 09/11/23 History Albuterol Sulfate [Ventolin HFA] 2 puff INHALATION QID PRN 09/11/23 09/11/23 History Potassium Chloride [Klor-Con M20] 20 meq PO DAILY 09/11/23 09/11/23 History Allergies Allergy/AdvReac Type Severity Reaction Status Date / Time No Known Allergies Allergy Verified 09/11/23 09:05 Surgical - Exam - General well developed, well nourished, no distress - Respiratory normal respiratory effort - Abdomen Abdomen: soft, non tender, no guarding, no rigid, no rebound - Genitourinary normal penis with no external lesions, testicles non-tender - Rectum Rectum: normal sphincter tone, no masses, other (Prostate enlarged but smooth) - Psychiatric oriented to time, oriented to person, oriented to place, speech is normal, memory intact Assessment and Plan (1) Malignant neoplasm of prostate Status: Acute Code(s): C61 - MALIGNANT NEOPLASM OF PROSTATE SNOMED Code(s): 418008424 Plan: The SpaceOar implant has been reviewed in detail with the patient. He understands that the rationale for this is to create separation between the prostate and rectum, thus reducing the risk of radiation proctitis. The material begins to breakdown 12-13 weeks following implant, and is reabsorbed by the body. Risks include anesthesia, bleeding, infection, and perineal discomfort. He understands that if the rectal wall is perforated the procedure will need to be aborted.
[2023-09-18] MEDS ORDERED: DEXAMETHASONE SOD PHOSPHATE 4 MG/ML 1 ML VIAL IV ONE (13:38)
[2023-09-18] MEDS ORDERED: MIDAZOLAM 2 MG/2 ML VIAL IV PRN (13:38)
[2023-09-18] MEDS ORDERED: HYDROmorphone 0.5 MG/0.5 ML SYRINGE IVP PRN (13:38)
[2023-09-18] MEDS ORDERED: LACTATED RINGERS 1,000 ML IV SCH (13:38)
[2023-09-18] MEDS ORDERED: ONDANSETRON 4 MG/2 ML VIAL IVP ONE (13:38)
[2023-09-18] MEDS ORDERED: IPRATROPIUM-ALBUTEROL 3 ML NEB INHALATION STA (14:08)
[2023-09-18 14:18] VITALS: TEMP 98.3
[2023-09-18] MEDS ORDERED: KETAMINE HCL IN 0.9 % NACL 50 MG/5 ML SYRINGE ONE (16:24)
[2023-09-18] MEDS ORDERED: MIDAZOLAM 2 MG/2 ML VIAL ONE (16:24)
[2023-09-18] MEDS ORDERED: PROPOFOL 10 MG/ML 20 ML VIAL IV ONE (16:24)
[2023-09-18] MEDS ORDERED: LIDOCAINE 2% (PF) 20 MG/ML 10 ML AMP SQ ONE (16:49)
--- NOTE | 2023-09-18 16:54 | P.OP ---
Date of Procedure: 09/18/23 Preoperative Diagnosis: Adenocarcinoma of the prostate Postoperative Diagnosis: Same Procedure(s) Performed: SpaceOAR Implant Anesthesia: MAC Surgeon: Srinivasa Salgado Estimated Blood Loss (ml): 5 IV fluids (ml): 100 Pathology: none sent Condition: stable Disposition: PACU Indications for Procedure: The patient is a 72-year-old white male originally diagnosed with prostate cancer July 2021. His PSA level at that time was 6.7, and biopsies showed [place] 6 adenocarcinoma. He elected to be managed with active surveillance. However, his PSA level cheo to 18.50 in March 2023. He underwent repeat prostate biopsies, 3 of which showed [place] 7 (3+4) adenocarcinoma. A PSMA PET/CT scan was negative. He was seen by Dr. Hammond, and has elected to be treated with IMRT and ADT. He now comes for SpaceOAR implant to reduce the risk of radiation induced rectal toxicity. Operative Findings: 12 mm separation created between prostate and rectum Description of Procedure: The patient was taken to the operating room and placed in the dorsolithotomy position, with his legs supported in Mart stirrups. The external genitalia was prepped and draped sterilely. The Bruel and Kjaer transrectal ultrasound probe was placed intrarectally. The prostate was imaged. The probe was then placed within the stabilizing stand. A spinal needle was advanced under ultrasonic guidance to the level of the urogenital diaphragm, and lidocaine was used to infiltrate the tissues as the needle was withdrawn. Next, the SpaceOAR needle was passed through the midline of the perineum, 1-2 cm anterior to the anal op ening. The needle was slowly advanced under ultrasonic guidance until the needle tip was located within the fat plane between the prostate and rectum, at the level of the mid prostate gland. The needle was confirmed to be midline on the axial imaging. A small amount of normal saline was injected for hydrodissection. Next, the SpaceOAR components were mixed and loaded into the Y connector per protocol. The Y connector was then connected to the needle, and the components were injected slowly over a course of approximately 12 seconds. A total of 10 ml was injected. Significant distance was created between the prostate and rectum, as desired. It should be noted that at no point was there any concern of rectal perforation. The needle was withdrawn, as well as the transrectal ultrasound probe, and the procedure was terminated. The patient tolerated the procedure well and was taken to the recovery room in stable condition.
[2023-09-18 17:12] VITALS: RESP 16
[2023-09-18 17:35] VITALS: BP 144/82; PULSE 73
== END 2023-09-18 17:38 | disposition home or self-care (01) ==
LOC: OR 12:40
PROVIDERS: ATTEND Urology
DX: C61 Malignant neoplasm of prostate (principal); I48.91 Unspecified atrial fibrillation; J45.909 Unspecified asthma, uncomplicated; Z79.51 Long term (current) use of inhaled steroids; Z79.899 Other long term (current) drug therapy
CPT/HCPCS: 55874; C1889; J2250; J1100; J2001; J0690; J2405; J2704

== ENCOUNTER 2023-12-30 16:35 | Emergency (ER) | payer MEDICARE ==
--- NOTE | 2023-12-30 17:06 | ED ---
General Adult HPI - General Stated complaint: Fall on thinners-Head injury Time Seen by Provider: 12/30/23 17:00 Source: patient, RN notes reviewed, old records reviewed - History of Present Illness Initial comments: This is a 73-year-old male who presents to the emergency department complaining that he turned around quickly and fell over his own feet. Patient states he hit his head on the ground. Patient denies any loss of consciousness. Patient states he does have some pain to the back of his head. Patient denies any neck pain. Patient has any numbness weakness. Patient denies any chest pain back pain or abdominal pain. Patient [place] any extremity pain. Patient is on blood thinners. - Related Data Home Medications Medication Instructions Recorded Confirmed Budesonide-Formot 160-4.5 Mcg 2 puff INHALATION RT-BID 06/14/19 12/30/23 [Symbicort 160-4.5 Mcg Inhaler] Metoprolol Tartrate [Lopressor] 50 mg PO BID 06/14/19 12/30/23 Montelukast [Singulair] 10 mg PO HS 06/14/19 12/30/23 lisinopriL [Zestril] 20 mg PO BID 06/14/19 12/30/23 Rivaroxaban [Xarelto] 20 mg PO W/SUPPER 12/08/21 12/30/23 Albuterol Sulfate [Ventolin HFA] 2 puff INHALATION RT-QID PRN 09/11/23 12/30/23 Spironolactone [Aldactone] 12.5 mg PO DAILY 12/30/23 12/30/23 Torsemide [Demadex] 20 mg PO DAILY 12/30/23 12/30/23 Allergies Allergy/AdvReac Type Severity Reaction Status Date / Time No Known Allergies Allergy Verified 12/30/23 18:31 Review of Systems ROS Statement: Those systems with pertinent positive or pertinent negative responses have been documented in the HPI. ROS Other: All systems not noted in ROS Statement are negative. Past Medical History Past Medical History: Atrial Fibrillation, Asthma, Hypertension, Pneumonia History of Any Multi-Drug Resistant Organisms: None Reported Past Surgical History: Back Surgery, Joint Replacement Additional Past Surgical History / Comment(s): stephanie hip replacements, cardioversions, had laporotomy in past for infection and wound left open to heal Past Anesthesia/Blood Transfusion Reactions: Previous Problems w/ Anesthesia Additional Past Anesthesia/Blood Transfusion Reaction / Comment(s): had trouble with an ileous post op first hip replacement Past Alcohol Use History: None Reported - Past Family History Mother Family Medical History: No Reported History Additional Family Medical History / Comment(s): at 96 General Exam - General Exam Comments Initial Comments: GENERAL: Patient is well-developed and well-nourished. Patient is nontoxic and well- hydrated and is in mild distress. ENT: Neck is soft and supple. No significant lymphadenopathy is noted. Oropharynx is clear. Moist mucous membranes. Neck has full range of motion without eliciting any pain. Patient has a hematoma to the occipital region of the scalp. EYES: The sclera were anicteric and conjunctiva were pink and moist. Extraocular movements were intact and pupils were equal round and reactive to light. Ey elids were unremarkable. PULMONARY: Unlabored respirations. Good breath sounds bilaterally. No audible rales rhonchi or wheezing was noted. CARDIOVASCULAR: There is a regular rate and rhythm without any murmurs gallops or rubs. ABDOMEN: Soft and nontender with normal bowel sounds. SKIN: Patient has a scalp laceration in the occipital region measuring about 4 cm. NEUROLOGIC: Patient is alert and oriented x3. Cranial nerves II through XII are grossly intact. Motor and sensory are also intact. Normal speech, volume and content. Symmetrical smile. MUSCULOSKELETAL: Normal extremities with adequate strength and full range of motion. LYMPHATICS: No significant lymphadenopathy is noted PSYCHIATRIC: Normal psychiatric evaluation. Course Vital Signs 12/30/23 12/30/23 16:59 17:34 Temperature 98.2 F Pulse Rate 88 96 Respiratory 18 17 Rate Blood Pressure 129/79 134/74 O2 Sat by Pulse 98 92 L Oximetry Procedures - Laceration Laceration #1 Consent Obtained: verbal consent Indication: laceration Site: scalp Description: irregular Depth: simple, single layer Size of Sutures: other (Carlos Alberto) Number of Sutures: 6 Complications: pain Patient Tolerated Procedure: well Medical Decision Making - Medical Decision Making Was pt. sent in by a medical professional or institution (, PA, FLASK CARRIER, urgent care, hospital, or [place] [facility] facility...) When possible be specific @ -No Did you speak to anyone other than the patient for history (EMS, parent, family, police, friend...)? What history was obtained from this source @ -No Did you review nursing and triage notes (agree or disagree)? Why? @ -I reviewed and agree with nursing and triage notes Were old charts reviewed (outside hosp., previous admission, EMS record, old EKG, old radiological studies, urgent care reports/EKG's, [place] health care facility records)? Report findings @ -No old charts were reviewed Differential Diagnosis (chest pain, altered mental status, abdominal pain women, abdominal pain men, vaginal bleeding, weakness, fever, dyspnea, syncope, headache, dizziness, GI bleed, back pain, seizure, CVA, palpatations, mental health, musculoskeletal)? @ -Skull fracture, subdural, intraparenchymal hemorrhage, subarachnoid, cervical spine fracture, this is not an all-inclusive list EKG interpreted by me (3pts min.). @ -As above X-rays interpreted by me (1pt min.). @ -None done CT interpreted by me (1pt min.). @ -CT of the brain and C-spine showed no acute abnormality U/S interpreted by me (1pt. min.). @ -None done What testing was considered but not performed or refused? (CT, X-rays, U/S, labs)? Why? @ -None What meds were considered but not given or refused? Why? @ -None Did you discuss the management of the patient with other professionals (professionals i.e. , PA, FLASK CARRIER, lab, RT, psych nurse, director of social work, storage battery tester, teacher, customer service security officer, director case management)? Give summary @ -No Was smoking cessation discussed for >3mins.? @ -No Was critical care preformed (if so, how long)? @ -No Were there social determinants of health that impacted care today? How? (Homelessness, low income, unemployed, alcoholism, drug addiction, transportation, low edu. Level, literacy, decrease access to med. care, fpc, rehab)? @ -No Was there de-escalation of care discussed even if they declined (Discuss DNR or withdrawal of care, Hospice)? DNR status @ -No What co-morbidities impacted this encounter? (DM, HTN, Smoking, COPD, CAD, Ca ncer, CVA, ARF, Chemo, Hep., AIDS, mental health diagnosis, sleep apnea, morbid obesity)? @ -None Was patient admitted / discharged? Hospital course, mention meds given and route, prescriptions, significant lab abnormalities, going to OR and other pertinent info. @ -Patient had a laceration to the scalp measuring about 4 cm and it was repaired by myself with sick carlos alberto. I did remove most of the hematoma underneath the lining tissue Undiagnosed new problem with uncertain prognosis? @ -No Drug Therapy requiring intensive monitoring for toxicity (Heparin, Nitro, Insulin, Cardizem)? @ -No Were any procedures done? @ -No Diagnosis/symptom? @ -Head injury Acute, or Chronic, or Acute on Chronic? @ -Acute Uncomplicated (without systemic symptoms) or Complicated (systemic symptoms)? @ -Complicated Side effects of treatment? @ -No Exacerbation, Progression, or Severe Exacerbation? @ -No Poses a threat to life or bodily function? How? (Chest pain, [place], [place], pneumonia, PE, COPD, DKA, ARF, appy, cholecystitis, CVA, Diverticulitis, Homicidal, Suicidal, threat to staff... and all critical care pts) @ -No Diagnosis/symptom? @ -Scalp laceration Acute, or Chronic, or Acute on Chronic? @ -Acute Uncomplicated (without systemic symptoms) or Complicated (systemic symptoms)? @ -Uncomplicated Side effects of treatment? @ -None Exacerbation, Progression, or Severe Exacerbation] @ -No Poses a threat to life or bodily function? @ -No Disposition Clinical Impression: Fall, Head injury, Scalp laceration Disposition: HOME SELF-CARE Condition: Good Instructions (If sedation given, give patient instructions): Fall Prevention for Older Adults (ED) Additional Instructions: Patient to return to the emergency department if he has any new symptoms in particular headache vomiting or neck pain. Patient also should return with any numbness or weakness. Patient is to have carlos alberto removed in 7 days. Is patient prescribed a controlled substance at d/c from ED?: No Referrals: Adrian Farias MD [Primary Care Provider] - 1-2 days Time of Disposition: 20:01
--- NOTE | 2023-12-30 18:45 | CT ---
EXAMINATION TYPE: CT brain cspine wo con CT DLP: 1495.5 mGycm, Automated exposure control for dose reduction was used. 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 TECHNIQUE: Brain: Multiple axial CT images of the brain were obtained without IV contrast. Cspine: Axial CT images from the skull base to the inferior aspect of T2 we obtained without intraven ous contrast. Coronal and sagittal reformatted images were also reviewed. FINDINGS: Brain: Extra-axial spaces: No abnormal extra-axial fluid collections. Ventricular system: Within normal limits Cerebral parenchyma: No acute intraparenchymal hemorrhage or mass effect. The herzog-white junction is well differentiated. Cerebellum: Unremarkable. Mass effect: No evidence of midline shift. Intracranial vasculature: unremarkable Soft tissues: Left scalp hematoma measuring up to 46 x 11. Calvarium/osseous structures: No depressed skull fracture. Paranasal sinuses and mastoid air cells: Clear. Visualized orbits: Orbital contents are intact. Cervical spine: Fracture: None. Osseous structures: Multilevel degenerative disc disease changes with endplate spurring and disc oste ophyte complex's. Vertebral alignment: Within normal limits. Spinal canal/Neural Foramina: Disc osteophyte complexes at C3-C4 through C6-C7 with at least mild spi nal canal stenosis. No evidence for significant neural foraminal stenosis. Neck soft tissues: Prevertebral soft tissues are within normal limits. Other: The airway is patent. Paraseptal emphysema changes with apical scarring IMPRESSION: 1. No acute intracranial process. 2. Left scalp hematoma. 3. No evidence of cervical spine fracture. 4. Moderate multilevel degenerative disc disease.
[2023-12-30] MEDS: HYDROmorphone 0.5 MG/0.5 ML SYRINGE IVP STA (19:35)
[2023-12-30] MEDS: ACETAMINOPHEN TAB 500 MG TAB PO STA (20:07)
[2023-12-30 20:42] VITALS: BP 148/94; PULSE 100; RESP 18; TEMP 97.6
== END 2023-12-30 20:28 | disposition home or self-care (01) ==
LOC: EC 16:35
DX: S01.01XA Laceration without foreign body of scalp, initial encounter (principal); W18.39XA Other fall on same level, initial encounter
CPT/HCPCS: 72125; 70450; 12002; 99284; 96374; J1170

== ENCOUNTER → 2024-10-20 | Outpatient (CLI) | payer MEDICARE | END | disposition home or self-care (01) | LOC: LABWHC1 14:06 | PROVIDERS: ATTEND Radiology Radiation Oncology | DX: C61 Malignant neoplasm of prostate (principal) | CPT/HCPCS: 36415; 84153 ==